=== PATIENT | male | born 1960 | race Caucasian/White ===

== ENCOUNTER 2021-01-02 17:45 | Inpatient (IN) | payer OTHER, SELFPAY ==
[2021-01-02] VITALS (11 sets, daily range): BP systolic 144–195; BP diastolic 67–105; PULSE 70–83; RESP 15–23; TEMP 36.2–37.1; O2SAT 91–98; BMI 36.6; BMI 35.9
[2021-01-02] MEDS: SODIUM CHLORIDE 0.9% 1,000 ML 150 ML IV (18:00)
[2021-01-02 18:30] LABS: Add Manual Diff / Slide Review NO; Basophils Absolute Auto 100 /uL (0-100); Basophils Percent Auto 0.4 % (0-2); Eosinophils Absolute Auto 200 /uL (0-450); Eosinophils Percent Auto 1.6 % (2-4); Hematocrit 41.6 % (41-53); Lymphocytes Absolute Auto 700 /uL (1100-4500); Lymphocytes Percent Auto 5.3 % (25-40); Mean Corpuscular HGB Conc 33.6 % (30-36); Mean Corpuscular Hemoglobin 30.6 PG (26-34); Mean Corpuscular Volume 91.2 fL (80-100); Monocytes Absolute Auto 800 /uL (0-900); Monocytes Percent Auto 5.9 % (3-14); Neutrophils Absolute Auto 11700 /uL (1500-7000); Neutrophils Percent Auto 86.8 % (50-75); Platelet Count 246 X10^3/uL (150-400); Red Blood Cell Count 4.56 X10^6/uL (4.5-5.9); White Blood Cell Count 13.5 X10^3/uL (4.5-11.0)
--- NOTE | 2021-01-02 18:33 | ED_ITS ---
HPI - Abdominal Pain <MANUEL Neal - Last Filed: 01/02/21 20:39> General Chief Complaint: Abdominal Pain Stated Complaint: abdominal pain Time Seen by Provider: 01/02/21 17:50 Source: patient Mode of arrival: Ambulatory Limitations: no limitations History of Present Illness HPI narrative: This is a 60-year-old male, use smokeless tobacco, has past medical history significant for hypertension, depression, anxiety, hyperlipidemia, BPH, inguinal hernia repair presents to ED with chief complain of started with suprapubic pain radiated up to epigastric and to bilateral mid abdomen after eating Chris sandwich at 11:30 a.m.. Patient reports his stomach feels bloated and distended. Patient had normal bowel movements this morning without bloody or tarry stools. Patient denies nausea, vomiting, fever or chills. Denies chest pain, dyspnea, increased back pain from his baseline chronic back pain. Patient denies new urinary symptoms and takes Flomax daily. Patient reports pain increases with movements rates as 5/10 currently upto toe curling. Patient also had colonoscopy about 7 years ago which he was told normal without polyps and denies history of diverticulitis. Patient takes average 5 alcohol drinks per day but does not use illicit drugs. Patient was referred to emergency ED for an evaluation from walk-in clinic. Related Data Home Medications Medication Instructions Recorded Confirmed bupropion HCl [Wellbutrin XL] 150 mg PO QDAY #30 tab 07/21/16 01/02/21 ibuprofen [Advil] 200 mg PO Q4HP PRN #0 tab 07/21/16 01/02/21 lisinopril 40 mg PO QDAY #30 tab 07/21/16 01/02/21 metoprolol tartrate 50 mg PO BID #0 tab 07/21/16 01/02/21 tamsulosin [Flomax] 0.4 mg PO QDAY #0 cap 07/21/16 01/02/21 Allergies Allergy/AdvReac Type Severity Reaction Status Date / Time No Known Drug Allergies Allergy Verified 01/02/21 17:52 Review of Systems <MANUEL Neal - Last Filed: 01/02/21 20:39> Review of Systems Narrative: General: Denies fever, chills, fatigue, malaise, sweats. HEENT: Denies sinus pain, ear pain, sore throat, difficulty swallowing, dizziness. Respiratory: Denies dyspnea, cough, wheezing, hemoptysis, sputum. Cardiovascular: Denies chest pain, palpitations, orthopnea, edema. Gastrointestinal: See HPI : Denies dysuria, frequency, incontinence, hematuria, urinary retention. Musculoskeletal: Denies weakness, joint pain or bony pain. Skin: Denies rash, skin lesions, or other. Neurologic: Denies weakness, headache, numbness, change in speech, confusion, seizures, incoordination. Psychiatric: No concerning psychosocial issues. 12-point review of systems is negative except for those stated above. Patient History <MANUEL Nael - Last Filed: 01/02/21 20:39> Medical History (Updated 01/02/21 @ 20:54 by Nestor Saleem MD) Abdominal pain Arthritis BPH (benign prostatic hyperplasia) Depression Hyperlipidemia Hypertension Influenza immunization not administered due to patient already having been immunized this season Surgical History (Updated 01/02/21 @ 20:40 by Nestor Saleem MD) Hx of umbilical hernia repair Social History (Updated 01/02/21 @ 18:37 by MANUEL Neal) Smoking Status: Current every day smoker Smokeless tobacco user: chewing tobacco alcohol intake: current substance use type: does not use Smoking Status: Current every day smoker alcohol intake frequency: 3 or more drinks per day Substance Use Type: does not use Exam <CARLOS NealP - Last Filed: 01/02/21 20:39> Narrative Exam Narrative: GEN: Alert, oriented x 3, well appearing and nourished, and in no acute distress. Head: Normal cephalic, atraumatic. No scalp or temporal tenderness, palpable mass or rash. EYES: Pupils are equal, round, and reactive to light and accommodation. Extraocular muscles are intact bilaterally. There is no subconjunctival hemorrhage, exudate and sclera non-icteric. ENT: Hearing grossly intact. Nose without bleeding, purulent discharge or dev iation. Mucous membrane moist, no mucosal lesion. Throat without erythema, tonsillar hypertrophy or exudate. Uvula in midline, airway patent. Neck: Trachea in midline. No JVD, non-tender without lymphadenopathy. No masses or thyroid megaly. Supple, non-tender and no meningeal signs. CARDIAC: Normal regular rate and rhythm without murmurs, gallops, or rubs. No chest wall tenderness. No peripheral edema, cyanosis or pallor. Capillary refill is less than 2 seconds. RESPIRATORY: Lungs are clear to auscultate bilaterally. No cough, wheezes, rales, or rhonchi. No stridor, respiratory distress, increase work of breathing, or accessary muscle used. ABD: Abdomen distended, tender to palpate in left mid and low quadrant. No guarding or rebound tenderness to palpate. Bowel sounds are normal in all 4 quadrants. There is no palpable masses or organomegaly. EXT: Full painless ROM of all extremities with no loss of sensation, strength, effusion or edema. SKIN: Warm, dry, normal color for patient. No erythema, lesions or rash over visible areas. BACK: Nontender without deformity or crepitance. No flank tenderness. NEUROLOGICAL: Alert and oriented to place, time and person. Sensation and motor function intact bilaterally. No facial droops, dysphasia. PSYCHIATRIC: Good judgement and reason, without hallucinations, abnormal affect or abnormal behaviors during the examination. Patient is not suicidal. Initial Vital Signs Initial Vital Signs: Vital Signs Temperature 98.8 F 01/02/21 17:49 Pulse Rate 83 01/02/21 17:49 Respiratory Rate 15 01/02/21 17:49 Blood Pressure 195/105 H 01/02/21 17:49 Pulse Oximetry 95 01/02/21 17:49 <Vincent Castillo DO - Last Filed: 01/02/21 20:55> Initial Vital Signs Initial Vital Signs: Vital Signs Temperature 98.8 F 01/02/21 17:49 Pulse Rate 83 01/02/21 17:49 Respiratory Rate 15 01/02/21 17:49 Blood Pressure 195/105 H 01/02/21 17:49 Pulse Oximetry 95 01/02/21 17:49 Scores <MANUEL Neal - Last Filed: 01/02/21 20:39> GCS Wheatcroft coma scale eye opening: Spontaneous Wheat[place] coma scale verbal response: Orientated Wheat[place] coma scale motor response: Obey commands [place] coma scale total score: 15 qSOFA Altered Mental Status (GCS <15): No Respiratory rate greater than/equal to 22: No Systolic blood pressure less than or equal to 100: No qSOFA Total: 0 0-1 Not High Risk 1-3 High risk Course <MANUEL Neal - Last Filed: 01/02/21 20:39> Course Course Narrative: Dr. Saleem consulted over the phone with labs, CT, and physical findings. Dr. Saleem will evaluate the patient at bedside. Decision to Admit Date: 01/02/21 Decision to Admit time: 19:37 Orders Ordered: ED Orders 01/02/21 17:52 EKG-12 Lead Stat 01/02/21 17:55 Complete Blood Count AUTO DIFF Stat Comprehensive Metabolic Panel Stat Lactate (Lactic Acid) Stat Lipase Stat Troponin & CK Cardiac Panel Stat 01/02/21 18:55 CT abdomen pelvis w con Stat Sodium Chloride (Normal Saline 0.9%) 1,000 mls @ 150 mls/hr IV CONT EDGAR Last Admin: 01/02/21 18:00 Dose: 150 mls/hr Documented by: BETHELOTEM Discontinued Medications Lidocaine HCl (Lidocaine 2% (Urojet) 5 Ml Gel) 5 ml TOP NOW ONE Stop: 01/02/21 20:01 Last Admin: 01/02/21 20:38 Dose: 5 ml Documented by: JUAN RAMON Morphine Sulfate (Morphine 4 Mg/Ml Inj) 4 mg IV NOW ONE Stop: 01/02/21 18:33 Last Admin: 01/02/21 18:40 Dose: 4 mg Documented by: JUAN RAMON Reevaluation(s) Reevaluation #1: Patient reports pain improved to 3/10 at this time after 4 mg of IV morphine. Labs and CT results shared with patient and . Paging Dr. Saleem to consult. Time: 19:32 Consultations Consultation #1: Dr. Saleem recommended for NGT to in compress stomach. Time: 18:43 Consultation #2: Dr. Saleem in ED to evaluate patient at bedside. Time: 19:48 Vital Signs Vital signs: Vital Signs - 8 hr 01/02/21 17:49 01/02/21 18:34 01/02/21 19:00 Temperature 98.8 F Pulse Rate 83 72 71 Respiratory Rate 15 21 21 Blood Pressure 195/105 H 165/82 H Pulse Oximetry 95 95 91 01/02/21 19:14 01/02/21 19:30 Temperature Pulse Rate 78 73 Respiratory Rate 23 20 Blood Pressure 166/80 H 162/83 H Pulse Oximetry 94 94 <Vincent Castillo DO - Last Filed: 01/02/21 20:55> Orders Ordered: ED Orders 01/02/21 17:52 EKG-12 Lead Stat 01/02/21 17:55 Complete Blood Count AUTO DIFF Stat Comprehensive Metabolic Panel Stat Lactate (Lactic Acid) Stat Lipase Stat Troponin & CK Cardiac Panel Stat 01/02/21 18:55 CT abdomen pelvis w con Stat Sodium Chloride (Normal Saline 0.9%) 1,000 mls @ 150 mls/hr IV CONT EDGAR Last Admin: 01/02/21 18:00 Dose: 150 mls/hr Documented by: JABARI Discontinued Medications Lidocaine HCl (Lidocaine 2% (Urojet) 5 Ml Gel) 5 ml TOP NOW ONE Stop: 01/02/21 20:01 Last Admin: 01/02/21 20:38 Dose: 5 ml Documented by: JUAN RAMON Morphine Sulfate (Morphine 4 Mg/Ml Inj) 4 mg IV NOW ONE Stop: 01/02/21 18:33 Last Admin: 01/02/21 18:40 Dose: 4 mg Documented by: JUAN RAMON Vital Signs Vital signs: Vital Signs - 8 hr 01/02/21 17:49 01/02/21 18:34 01/02/21 19:00 Temperature 98.8 F Pulse Rate 83 72 71 Respiratory Rate 15 21 21 Blood Pressure 195/105 H 165/82 H Pulse Oximetry 95 95 91 01/02/21 19:14 01/02/21 19:30 Temperature Pulse Rate 78 73 Respiratory Rate 23 20 Blood Pressure 166/80 H 162/83 H Pulse Oximetry 94 94 MDM - Abdominal Pain <MANUEL Neal - Last Filed: 01/02/21 20:39> Differential Diagnosis Differential diagnosis: Likely abdominal pain, acute appendicitis, calculus of kidney, diverticulitis, small bowel obstruction and other (Cholecystitis) Medical Records Attestation: I reviewed the patient's medical records. Lab Data Attestation: I reviewed the patient's lab results. Result diagrams: 01/02/21 17:55 01/02/21 17:55 Labs: Lab Results 01/02/21 01/02/21 01/02/21 Range/Units 17:55 17:55 17:55 WBC 13.5 H (4.5-11.0) X10^3/uL RBC 4.56 (4.5-5.9) X10^6/uL Hgb 14.0 (13.5-17.5) g/dL Hct 41.6 (41-53) % MCV 91.2 (80-100) fL MCH 30.6 (26-34) PG MCHC 33.6 (30-36) % RDW 14.0 (11.6-14.8) % Plt Count 246 (150-400) X10^3/uL Neut % (Auto) 86.8 H (50-75) % Lymph % (Auto) 5.3 L (25-40) % [place] % (Auto) 5.9 (3-14) % Eos % (Auto) 1.6 L (2-4) % Baso % (Auto) 0.4 (0-2) % Neut # (Auto) 54331 H (4080-8989) /uL Lymph # (Auto) 700 L (7142-2232) /uL [place] # (Auto) 800 (0-900) /uL Eos # (Auto) 200 (0-450) /uL Baso # (Auto) 100 (0-100) /uL Sodium 137 (137-145) mmol/L Potassium 3.8 (3.4-5.1) mmol/L Chloride 101 (98-107) mmol/L Carbon Dioxide 30 (22-32) mmol/L BUN 26 H (9-20) mg/dL Creatinine 0.72 (0.66-1.25) mg/dL Estimated GFR > 60.0 (>60) mL/min BUN/Creatinine Ratio 36.1 H (6-22) Glucose 118 H (70-100) mg/dL Lactate 1.3 (0.7-2.1) mmol/L Calcium 9.7 (8.4-10.2) mg/dL Total Bilirubin 0.6 (0.2-1.3) mg/dL AST 27 (17-59) IU/L ALT 27 (<50) IU/L Alkaline Phosphatase 109 (38-126) U/L Total Creatine Kinase 84 (55-170) U/L CK-MB (CK-2) TNP CK-MB (CK-2) Rel Index TNP Troponin I < 0.012 (0.01-0.034) ng/mL Total Protein 7.7 (6.3-8.2) g/dL Albumin 4.5 (3.5-5.0) g/dL Globulin 3.2 (1.7-4.1) g/dL Albumin/Globulin Ratio 1.4 (1.0-2.8) Lipase 76 (23-300) U/L Imaging Data CT scan - abdomen/pelvis: Radiologist's Impression: [address] [id number] Scan ReportSigned Patient: Bernabe Siddiqi JMR#: [id number]: 1Acct:[id number]/Sex: 60 / MDate of Service: 01/02/21Loc: EDAccession Number: [id number] Procedure: CT abdomen pelvis w con Ordering Provider: Leo Montesinos PROCEDURE: CT ABDOMEN PELVIS W CON INDICATIONS: low to mid abd pain, SOB/cholecystitis/diverticulitis TECHNIQUE: After the administration of intravenous contrast, 5 mm thick sections acquired from the diaphragm to the symphysis. 5 mm coronal and sagittal reformats were acquired. For radiation dose reduction, the following was used: automated exposure control, adjustment of mA and/or kV according to patient size. COMPARISON: None. FINDINGS: Image quality: Excellent. ABDOMEN: Lung bases: Lung bases are clear. Heart size is normal. Solid organs: Liver is normal in size and enhancement. Gallbladder is within normal limits. Biliary system is non dilated. Pancreas enhances normally. Spleen is normal in size and enhancement. No adrenal nodules. Kidneys demonstrate normal size and enhancement, without hydronephrosis. 2 mm nonobstructing calculus in the superior pole right kidney. 3 mm nonobstructing calculus in the inferior pole right kidney. Peritoneum and bowel: Moderate gastric distention is present. Duodenum is normal in caliber. There is moderate distension of multiple proximal jejunal loops, which are mildly thickened. There is a transition point between dilated and nondilated small bowel within the low anterior pelvis. Distal small bowel is decompressed. Colon is decompressed. Appendix is normal. There is mild mesenteric edema adjacent to the dilated small bowel loops, as well as a small amount of interloop fluid. No free fluid or air. Nodes and vessels: No retroperitoneal or mesenteric adenopathy by size criteria. Aorta and inferior vena cava are normal in size. Miscellaneous: No ventral hernias. PELVIS: Genitourinary: Bladder wall thickness is normal. Miscellaneous: No inguinal hernias or adenopathy. Bones: No suspicious bony lesions. No vertebral body compression fractures. IMPRESSION: 1. Small-bowel obstruction, with transition zone in the anterior pelvis. 2. Thickened small bowel loops, consistent with infection, inflammation, or ischemia. 3. Normal appendix. 4. Small nonobstructing right renal calculi. Dictated by: Saw Schmidt M.D. on 01/02/2021 at 19:19 Approved by: Saw Schmidt M.D. on 01/02/2021 at 19:21 Chest x-ray: Radiologist's Impression: [address] [id number] ReportSigned Patient: Bernabe Siddiqi JMR#: [id number]: 1Acct:[id number]/Sex: 60 / MDate of Service: 01/02/21Loc: [id number] Number: [id number] Procedure: XR chest 1V Ordering Provider: Leo Montesinos PROCEDURE: XR CHEST 1V INDICATIONS: s/p NGT insertion placement TECHNIQUE: One view of the chest was acquired. COMPARISON: None. FINDINGS: Surgical changes and devices: NGT is present, tip of which is in the gastric lumen. Lungs and pleura: Lungs are clear. No pleural effusions or pneumothorax. Mediastinum: Mediastinal contours appear normal. Heart size is normal. Bones and chest wall: No suspicious bony lesions. Overlying soft tissues appear unremarkable. IMPRESSION: No acute process. Dictated by: Saw Schmidt M.D. on 01/02/2021 at 20:26 Approved by: Saw Schmidt M.D. on 01/02/2021 at 20:27 ECG Data Attestation: I personally reviewed and interpreted this ECG as follows: Prior ECG tracings: not available for review Interpretation: Normal sinus rhythm rate at 70. Normal [place]. OK interval 162, QRS duration 90, QT/QTC 400/[address] changes MDM Narrative Medical decision making narrative: This is a 60-year-old male who presents to ED with chief complain of abdominal pain started on suprapubic region but now radiates to epigastric and bilateral mid abdomen without nausea, vomiting, fever or chills since 11:30 this morning when he had lunch. Patient reports last bowel movement this morning which was normal for him. Patient has history of umbilical hernia repair about 8 years ago. Physical exam appreciated distended abdomen which is tender to palpate in left mid to low abdomen. Slightly elevated white count of 11.3 and neutrophil of 86.8%. Lactate within normal of 1.3. Patient is mildly dehydrated with elevated BUN of 26 and BUN/creatinine ratio of 36.1 otherwise normal lipase, kidney function test, liver function test. Lactate is 1.3 and patient is afebrile. EKG was normal sinus rhythm without acute ST changes and cardiac enzymes were negative. Abdomen CT shows small-bowel obstruction with transition zone in the anterior pelvis with thickened small bowel loops concerns for infection/inflammation or ischemia. No indications for appendicitis and incidental finding of small nonobstructing right renal calculi. Patient was medicated with morphine 4 mg IV which improved discomfort. Patient was hydrated with gentle controlled IV fluid of normal saline. Dr. Saleem consulted and he kindly accepted patient's care and evaluated patient at bedside. He in placed an 18 Indian NG to and obtain about 500 mL of brown color food particles. <Vincent Castillo, DO - Last Filed: 01/02/21 20:55> Lab Data Labs: Lab Results 01/02/21 01/02/21 01/02/21 Range/Units 17:55 17:55 17:55 WBC 13.5 H (4.5-11.0) X10^3/uL RBC 4.56 (4.5-5.9) X10^6/uL Hgb 14.0 (13.5-17.5) g/dL Hct 41.6 (41-53) % MCV 91.2 (80-100) fL MCH 30.6 (26-34) PG MCHC 33.6 (30-36) % RDW 14.0 (11.6-14.8) % Plt Count 246 (150-400) X10^3/uL Neut % (Auto) 86.8 H (50-75) % Lymph % (Auto) 5.3 L (25-40) % [place] % (Auto) 5.9 (3-14) % Eos % (Auto) 1.6 L (2-4) % Baso % (Auto) 0.4 (0-2) % Neut # (Auto) 00709 H (8676-2282) /uL Lymph # (Auto) 700 L (1828-5528) /uL [place] # (Auto) 800 (0-900) /uL Eos # (Auto) 200 (0-450) /uL Baso # (Auto) 100 (0-100) /uL Sodium 137 (137-145) mmol/L Potassium 3.8 (3.4-5.1) mmol/L Chloride 101 (98-107) mmol/L Carbon Dioxide 30 (22-32) mmol/L BUN 26 H (9-20) mg/dL Creatinine 0.72 (0.66-1.25) mg/dL Estimated GFR > 60.0 (>60) mL/min BUN/Creatinine Ratio 36.1 H (6-22) Glucose 118 H (70-100) mg/dL Lactate 1.3 (0.7-2.1) mmol/L Calcium 9.7 (8.4-10.2) mg/dL Total Bilirubin 0.6 (0.2-1.3) mg/dL AST 27 (17-59) IU/L ALT 27 (<50) IU/L Alkaline Phosphatase 109 (38-126) U/L Total Creatine Kinase 84 (55-170) U/L CK-MB (CK-2) TNP CK-MB (CK-2) Rel Index TNP Troponin I < 0.012 (0.01-0.034) ng/mL Total Protein 7.7 (6.3-8.2) g/dL Albumin 4.5 (3.5-5.0) g/dL Globulin 3.2 (1.7-4.1) g/dL Albumin/Globulin Ratio 1.4 (1.0-2.8) Lipase 76 (23-300) U/L Discharge Plan Departure Patient Disposition: Admitted As Inpatient Clinical Impression: SBO (small bowel obstruction) Admit Date/Time: 01/02/21 19:59 Admit Provider: Nestor Saleem <Vincent Castillo DO - Last Filed: 01/02/21 20:55> Cosign ED Attending Cosignature Attestation: Dr Castillo Co-Sign Statement: I was available for consultation during this patient's emergency department visit. This chart is signed by myself for administrative purposes only. I did not have direct contact with this patient during this visit. They were seen independently by the APC.
[2021-01-02] MEDS: MORPHINE 4 MG/ML INJ IV (18:40)
[2021-01-02 18:42] LABS: Alanine Aminotransferase 27 IU/L (<50); Albumin 4.5 g/dL (3.5-5.0); Albumin Globulin Ratio 1.4 (1.0-2.8); Alkaline Phosphatase 109 U/L (38-126); Aspartate Aminotransferase 27 IU/L (17-59); BUN Creatinine Ratio 36.1 (6-22); Bilirubin Total 0.6 mg/dL (0.2-1.3); Blood Urea Nitrogen 26 mg/dL (9-20); Calcium 9.7 mg/dL (8.4-10.2); Carbon Dioxide 30 mmol/L (22-32); Chloride 101 mmol/L (98-107); Creatine Kinase 84 U/L (55-170); Estimated Glomerular Filt Rate > 60.0 mL/min (>60); Globulin 3.2 g/dL (1.7-4.1); Glucose 118 mg/dL (70-100); HEMOLYSIS < 15 (0-50); Lipase 76 U/L (23-300); Potassium 3.8 mmol/L (3.4-5.1); Sodium 137 mmol/L (137-145); Total Protein 7.7 g/dL (6.3-8.2)
[2021-01-02 18:53] LABS: Troponin I < 0.012 ng/mL (0.01-0.034)
--- NOTE | 2021-01-02 18:55 | DI.CT.S_ITS ---
PROCEDURE: CT ABDOMEN PELVIS W CON INDICATIONS: low to mid abd pain, SOB/cholecystitis/diverticulitis TECHNIQUE: After the administration of intravenous contrast, 5 mm thick sections acquired from the diaphragm to the symphysis. 5 mm coronal and sagittal reformats were acquired. For radiation dose reduction, the following was used: automated exposure control, adjustment of mA and/or kV according to patient size. COMPARISON: None. FINDINGS: Image quality: Excellent. ABDOMEN: Lung bases: Lung bases are clear. Heart size is normal. Solid organs: Liver is normal in size and enhancement. Gallbladder is within normal limits. Biliary system is non dilated. Pancreas enhances normally. Spleen is normal in size and enhancement. No adrenal nodules. Kidneys demonstrate normal size and enhancement, without hydronephrosis. 2 mm nonobstructing calculus in the superior pole right kidney. 3 mm nonobstructing calculus in the inferior pole right kidney. Peritoneum and bowel: Moderate gastric distention is present. Duodenum is normal in caliber. There is moderate distension of multiple proximal jejunal loops, which are mildly thickened. There is a transition point between dilated and nondilated small bowel within the low anterior pelvis. Distal small bowel is decompressed. Colon is decompressed. Appendix is normal. There is mild mesenteric edema adjacent to the dilated small bowel loops, as well as a small amount of interloop fluid. No free fluid or air. Nodes and vessels: No retroperitoneal or mesenteric adenopathy by size criteria. Aorta and inferior vena cava are normal in size. Miscellaneous: No ventral hernias. PELVIS: Genitourinary: Bladder wall thickness is normal. Miscellaneous: No inguinal hernias or adenopathy. Bones: No suspicious bony lesions. No vertebral body compression fractures. IMPRESSION: 1. Small-bowel obstruction, with transition zone in the anterior pelvis. 2. Thickened small bowel loops, consistent with infection, inflammation, or ischemia. 3. Normal appendix. 4. Small nonobstructing right renal calculi. Dictated by: Saw Schmidt M.D. on 01/02/2021 at 19:19 Approved by: Saw Schmidt M.D. on 01/02/2021 at 19:21
[2021-01-02 19:37] LABS: Lactate (Lactic Acid) 1.3 mmol/L (0.7-2.1)
--- NOTE | 2021-01-02 20:13 | DI.RAD.S_ITS ---
PROCEDURE: XR CHEST 1V INDICATIONS: s/p NGT insertion placement TECHNIQUE: One view of the chest was acquired. COMPARISON: None. FINDINGS: Surgical changes and devices: NGT is present, tip of which is in the gastric lumen. Lungs and pleura: Lungs are clear. No pleural effusions or pneumothorax. Mediastinum: Mediastinal contours appear normal. Heart size is normal. Bones and chest wall: No suspicious bony lesions. Overlying soft tissues appear unremarkable. IMPRESSION: No acute process. Dictated by: Saw Schmidt M.D. on 01/02/2021 at 20:26 Approved by: Saw Schmidt M.D. on 01/02/2021 at 20:27
--- NOTE | 2021-01-02 20:34 | P.HP_ITS ---
History of Present Illness History of Present Illness Date Patient Seen: 01/02/21 Time Patient Seen: 20:20 Chief complaint: abdominal pain Narrative: The patient is a gentleman who developed abdominal pain earlier today. He had a normal bowel movement this morning. Has had no nausea or vomiting. He feels that his abdomen is bloated. He has had some minor abdom inal discomfort over the years but nothing like this. He had a colonoscopy 8 or 9 years ago about the age of 51. No in his family of any has any intestinal cancer. The patient does note occasionally he hears sloshing in his abdomen. It sounds like fluid going back and forth. This is been going on for several years. His only prior abdominal operation was a laparoscopic repair of an umbilical hernia and perhaps 1 below it with mesh. Patient History Medical History (Updated 01/02/21 @ 20:54 by Nestor Saleem MD) Abdominal pain Arthritis BPH (benign prostatic hyperplasia) Depression Hyperlipidemia Hypertension Influenza immunization not administered due to patient already having been immunized this season Surgical History (Updated 01/02/21 @ 20:40 by Nestor Saleem MD) Hx of umbilical hernia repair Family & Social History Safety & Behavioral: Feels Safe in Current Yes Environment Been Physically Hurt or No Threatened By a Person Tobacco & Substance use: Smoking Status prior smoker. Twenty years ago alcohol intake current alcohol intake frequency 3 or more drinks per day Substance Use Type does not use Meds Home Medications and Allergies Home Medications Medication Instructions Recorded Confirmed Type bupropion HCl [Wellbutrin XL] 150 mg PO QDAY #30 tab 07/21/16 01/02/21 History ibuprofen [Advil] 200 mg PO Q4HP PRN #0 tab 07/21/16 01/02/21 History lisinopril 40 mg PO QDAY #30 tab 07/21/16 01/02/21 History metoprolol tartrate 50 mg PO BID #0 tab 07/21/16 01/02/21 History tamsulosin [Flomax] 0.4 mg PO QDAY #0 cap 07/21/16 01/02/21 History Allergies Allergy/AdvReac Type Severity Reaction Status Date / Time No Known Drug Allergies Allergy Verified 01/02/21 17:52 Review of Systems Review of Systems Narrative: Patient wears glasses. Denies double vision or pain is eyes. No earaches or sore throats. No tooth aches. No trouble swallowing. No cough cold at this time. History of asthma but no longer uses medication for it. No heart problems or chest pain that he is aware of. No black or bloody bowel movements. Appetite up until today is been good. He does have trouble with frequency and urgency. No blood in his urine and no history kidney stones. No seizures or blackouts. He suffers from anxiety and depression and takes medication for it. No problems with unusual bruising or bleeding. Exam Vital Signs (past 8 hours): - 01/02/21 17:49 Temperature 98.8 F Pulse Rate 83 Respiratory Rate 15 Blood Pressure 195/105 H Pulse Oximetry 95 Oxygen Delivery Method Room Air Narrative Exam Narrative: Cooperative gentleman in no apparent distress. Pain much improved after morphine was given. Eyes are nonicteric. Conjunctivae a little pale. Pupils equal round small reactive to light. Ears without lesion. Oral mucosa is dry and no open lesions. Nasal septum is midline. No polyps seen. Patient has no palpable nodes in his neck or supraclavicular areas. Trachea is midline mobile. No obvious masses in the neck or thyroid lungs are clear to auscultation without rales or rhonchi. Good respiratory effort. Heart regular rate and rhythm without murmur gallop. No heave lift or thrill. Abdomen is m arkedly distended and soft. No hernias appreciated. Liver and spleen are not obviously enlarged. His size however would preclude finding a mass or hernia unless or significant in size. Extremities without cyanosis clubbing or edema. No bony deformities of the hands. Absent dorsalis pedis pulses bilaterally. 2+ tibialis posterior pulses. Patient is alert and oriented. Speech rate and content are appropriate. Affect is appropriate. Extraocular movements are intact tongue is midline face is symmetric. Objective Imaging CT scan - abdomen: My impression: Patient has evidence of a bowel obstruction which is probably related to the mesh repairs of aim of his umbilical hernia. I can see the metallic clips that were the anchors to hold the mesh in place. There is some edema in the area. There is some fecalization of small bowel in the region. The stomach is markedly distended with fluid. Labs Result Diagrams: 01/02/21 17:55 01/02/21 17:55 Labs: Laboratory Results - last 24 hr 03/10/21 03/10/21 03/10/21 17:55 17:55 17:55 WBC 13.5 H RBC 4.56 Hgb 14.0 Hct 41.6 MCV 91.2 MCH 30.6 MCHC 33.6 RDW 14.0 Plt Count 246 Neut % (Auto) 86.8 H Lymph % (Auto) 5.3 L [place] % (Auto) 5.9 Eos % (Auto) 1.6 L Baso % (Auto) 0.4 Neut # (Auto) 73650 H Lymph # (Auto) 700 L [place] # (Auto) 800 Eos # (Auto) 200 Baso # (Auto) 100 Sodium 137 Potassium 3.8 Chloride 101 Carbon Dioxide 30 BUN 26 H Creatinine 0.72 Estimated GFR > 60.0 BUN/Creatinine Ratio 36.1 H Glucose 118 H Lactate 1.3 Calcium 9.7 Total Bilirubin 0.6 AST 27 ALT 27 Alkaline Phosphatase 109 Total Creatine Kinase 84 CK-MB (CK-2) TNP CK-MB (CK-2) Rel Index TNP Troponin I < 0.012 Total Protein 7.7 Albumin 4.5 Globulin 3.2 Albumin/Globulin Ratio 1.4 Lipase 76 Assessment & Plan Assessment and plan (1) Depression: Problem details: Will hold Wellbutrin for now. Restart when patient able to take p.o.. Ativan for anxiety. Status: Acute (2) BPH (benign prostatic hyperplasia): Problem details: Will hold the Flomax for now. Resume when p.o. resumes. May require a Romano but for now will try to manage without it. Status: Acute (3) Hyperlipidemia: Problem details: Hold medication for now. Status: Acute (4) Hypertension: Problem details: Patient normally on lisinopril and metoprolol for his blood pressure. Will continue IV metoprolol for now. Status: Acute (5) Influenza immunization not administered due to patient already having been immunized this season: Status: Acute (6) SBO (small bowel obstruction): Problem details: NG tube was placed by me. Immediately obtain 500 cc material in 250 shortly after. Start tube is still draining. X-ray reveals a tube in good position in the stomach. I advanced it slightly in order to push it further into the stomach. Will continue intermittent suction. Planned small-bowel follow- through with [facility] or similar starting tomorrow morning. Fluid resuscitation through the night. Right now patient has a mild elevation of his white blood cell count he is not tender and therefore I do not think I need to perkins him to the operating room. I am pretty sure based on the CT scan that this is an obstruction related to his mesh implantation at the time of hernia repair in the early . Status: Acute (7) Alcohol abuse: Problem details: Patient drinks on average 5 mixed drinks a day. Sometimes less sometimes more. He has done this for some time. There is nothing on the CT scan to suggest hepatitis but I am concerned that he could go into withdrawal therefore will start a CIWA protocol Status: Acute
[2021-01-02] MEDS: LIDOCAINE 2% (UROJET) 5 ML GEL TOP (20:38)
[2021-01-02 21:54] LABS: COVID19 - ADMIT (NP swab/PCR) Negative (Negative)
[2021-01-02] MEDS: METOPROLOL TARTRATE 5 MG/5 ML INJ IV (22:01)
[2021-01-02] MEDS: ENOXAPARIN 40 MG/0.4 ML SYRINGE SUBCUT (22:01)
[2021-01-02] MEDS: LACTATED RINGERS 1,000 ML 150 ML IV (22:02)
--- NOTE | 2021-01-02 23:10 | PC.NURSE ---
Admit/Evening Shift Note- Patient [id number] to room via stretcher from ER at 2110. Patient able to walk on his own with steady from stretcher to bed. Admit questions done, physical assessment done, and skin check completed. NG set tto 110mmHg intermittant suction as ordered. Tubing clogged and blocking drainage. Flushed line. Positive results. CIWA started and seizure pads placed on bed rails. CIWA on arrival= 0. Patient oriented to bed and bed controls, room, lights, phone, bathroom, and call olea/tv remote. Safety measures in place. bed alarm activated. Patient agrees to call for assistance. Call olea and phone within reach. Will continue to [facility].
[2021-01-03] VITALS (7 sets, daily range): BP systolic 139–155; BP diastolic 77–95; PULSE 69–86; RESP 18; TEMP 36.1–36.7; O2SAT 94–97
[2021-01-03] MEDS: METOPROLOL TARTRATE 5 MG/5 ML INJ IV ×4 (03:49→22:02)
[2021-01-03] MEDS: LACTATED RINGERS 1,000 ML 150 ML IV ×3 (05:12→19:55)
[2021-01-03 06:27] LABS: Add Manual Diff / Slide Review NO; Basophils Absolute Auto 0 /uL (0-100); Basophils Percent Auto 0.2 % (0-2); Eosinophils Absolute Auto 100 /uL (0-450); Eosinophils Percent Auto 1.3 % (2-4); Hemoglobin 13.8 g/dL (13.5-17.5); Lymphocytes Absolute Auto 700 /uL (1100-4500); Lymphocytes Percent Auto 6.2 % (25-40); Mean Corpuscular HGB Conc 32.8 % (30-36); Mean Corpuscular Hemoglobin 30.5 PG (26-34); Mean Corpuscular Volume 93.1 fL (80-100); Monocytes Absolute Auto 900 /uL (0-900); Monocytes Percent Auto 7.7 % (3-14); Neutrophils Absolute Auto 10000 /uL (1500-7000); Neutrophils Percent Auto 84.6 % (50-75); Platelet Count 213 X10^3/uL (150-400); Red Blood Cell Count 4.51 X10^6/uL (4.5-5.9); White Blood Cell Count 11.8 X10^3/uL (4.5-11.0)
[2021-01-03 06:37] LABS: Alanine Aminotransferase 24 IU/L (<50); Albumin 4.2 g/dL (3.5-5.0); Albumin Globulin Ratio 1.4 (1.0-2.8); Alkaline Phosphatase 98 U/L (38-126); Aspartate Aminotransferase 28 IU/L (17-59); BUN Creatinine Ratio 32.8 (6-22); Bilirubin Total 0.7 mg/dL (0.2-1.3); Blood Urea Nitrogen 21 mg/dL (9-20); Calcium 9.3 mg/dL (8.4-10.2); Carbon Dioxide 29 mmol/L (22-32); Chloride 101 mmol/L (98-107); Estimated Glomerular Filt Rate > 60.0 mL/min (>60); Globulin 2.9 g/dL (1.7-4.1); Glucose 110 mg/dL (70-100); HEMOLYSIS < 15 (0-50); Potassium 3.9 mmol/L (3.4-5.1); Sodium 136 mmol/L (137-145); Total Protein 7.1 g/dL (6.3-8.2)
--- NOTE | 2021-01-03 08:00 | DI.RAD.S_ITS ---
PROCEDURE: [place] SMALL BOWEL FOLLOW THROUGH INDICATIONS: sbo COMPARISON: [facility], CT, CT ABDOMEN PELVIS W CON, 01/02/2021, 19:02. [facility], CR, XR CHEST 1V, 01/02/2021, 20:16. FINDINGS: KUB: Preprocedural dispute coordinator film demonstrates multiple persistent distended loops of small bowel predominantly in the left mid and lower abdomen. Multiple mesh surgical coils are noted in the abdomen.. No suspicious abdominal calcifications. Visualized solid organ contours appear normal. No suspicious bony abnormalities. Small bowel: There is transit of ingested oral barium through the small bowel. Persistent air distended loops of small bowel in the left mid and lower abdomen. Mucosal folds are smooth and of normal thickness. No strictures, intraluminal masses, or extrinsic mass effects are noted. Oral contrast is noted to the level of the rectum. IMPRESSION: Visualized transit of oral contrast from the stomach to the level of the rectum within 8 hours of initiating examination. Several loops of distended small bowel in the left mid and lower abdomen persists. Dictated by: Vic Potter M.D. on 01/03/2021 at 16:53 Approved by: Vic Potter M.D. on 01/03/2021 at 16:55
[2021-01-03] MEDS: KETOROLAC 30 MG/ML VIAL IV ×2 (09:24→16:08)
[2021-01-03] MEDS: ENOXAPARIN 40 MG/0.4 ML SYRINGE SUBCUT (09:24)
--- NOTE | 2021-01-03 15:09 | CM.IDA ---
Initial DCP Assessment Note Pt is a 60 yo female, resident of [place], presents w/ SBO, NG tube placed by Dr Saleem. PCP: Not Listed Payer: Dl Reviewed chart, met w/ patient and his spouse Yadira, introduced role. 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 Patient reports at least 5 mixed, hard alcohol drinks per day, placed on CIWA protocal. Will follow closely. No needs expected from DC planning team today, will follow closely for any DC needs or concerns that arise. NANCY Turcios
--- NOTE | 2021-01-03 19:52 | PM.PN.1 ---
Subjective Subjective Date Patient Seen: 01/03/21 Time Patient Seen: 19:53 Interval history: Patient was seen earlier today briefly again this evening. He had a small-bowel follow-through today. He has had 2 bowel movements 1 of which was very large. His abdominal pain has essentially resolved. Exam Vital Signs (past 8 hours): - 01/03/21 15:35 Temperature 98.1 F Pulse Rate 86 Respiratory Rate 18 Blood Pressure 139/95 H Pulse Oximetry 95 Oxygen Delivery Method Room Air Oxygen Flow Rate 0 Narrative Exam Narrative: Lungs are clear. Abdomen remains distended but soft. No tenderness. Objective Imaging Abdominal x-ray: My impression: Patient had order soluble contrast placed is NG tube in it 8 hour film he had contrast in the rectum. He did have some dilated small bowel loops remaining in left mid abdomen. The remainder are normal. Stomach was no longer distended. Labs Result Diagrams: 01/03/21 06:00 01/03/21 06:00 Labs: Laboratory Results - last 24 hr 01/02/21 01/03/21 01/03/21 20:53 06:00 06:00 WBC 11.8 H RBC 4.51 Hgb 13.8 Hct 42.0 MCV 93.1 MCH 30.5 MCHC 32.8 RDW 14.0 Plt Count 213 Neut % (Auto) 84.6 H Lymph % (Auto) 6.2 L [place] % (Auto) 7.7 Eos % (Auto) 1.3 L Baso % (Auto) 0.2 Neut # (Auto) 90057 H Lymph # (Auto) 700 L [place] # (Auto) 900 Eos # (Auto) 100 Baso # (Auto) 0 Sodium 136 L Potassium 3.9 Chloride 101 Carbon Dioxide 29 BUN 21 H Creatinine 0.64 L Estimated GFR > 60.0 BUN/Creatinine Ratio 32.8 H Glucose 110 H Calcium 9.3 Total Bilirubin 0.7 AST 28 ALT 24 Alkaline Phosphatase 98 Total Protein 7.1 Albumin 4.2 Globulin 2.9 Albumin/Globulin Ratio 1.4 SARS-CoV-2 (PCR) Negative [facility] Medical History (Updated 01/03/21 @ 19:58 by Nestor Saleem MD) Abdominal pain Arthritis BPH (benign prostatic hyperplasia) Depression Hyperlipidemia Hypertension Influenza immunization not administered due to patient already having been immunized this season Surgical History (Updated 01/02/21 @ 20:40 by Nestor Saleem MD) Hx of umbilical hernia repair Social History (Updated 01/02/21 @ 18:37 by MANUEL Neal) household members: spouse Smoking Status: Current every day smoker Smokeless tobacco user: chewing tobacco alcohol intake: current substance use type: does not use Assessment & Plan Assessment and plan (1) Hypertension: Problem details: Will continue IV metoprolol but start on p.o. lisinopril. Qualifiers: Hypertension type: essential hypertension Qualified Code(s): I10 - Essential (primary) hypertension Status: Acute (2) Hyperlipidemia: Problem details: Resume atorvastatin Qualifiers: Hyperlipidemia type: unspecified Qualified Code(s): E78.5 - Hyperlipidemia, unspecified Status: Acute (3) BPH (benign prostatic hyperplasia): Problem details: Resume Flomax Qualifiers: Lower urinary tract symptom presence: symptoms present Lower urinary tract symptom detail: urinary frequency Qualified Code(s): N40.1 - Benign prostatic hyperplasia with lower urinary tract symptoms; R35.0 - Frequency of micturition Status: Acute (4) Depression: Problem details: Resume Wellbutrin. Continue Ativan. Qualifiers: Depression Type: unspecified Qualified Code(s): F32.9 - Major depressive disorder, single episode, unspecified Status: Acute (5) Arthritis: Problem details: Will continue his present nonsteroidals Status: Acute (6) SBO (small bowel obstruction): Problem details: Seems to be resolving. Will remove NG tube Status: Acute (7) Abdominal pain: Qualifiers: Abdominal location: lower abdomen, unspecified Qualified Code(s): R10.30 - Lower abdominal pain, unspecified Status: Acute (8) Alcohol abuse: Problem details: Continue CIWA protocol. Ativan as needed. Continue IV per metoprolol for now. Status: Acute Assessment & Plan narrative: Resolved. Start diet in a.m. after x-rays performed.
[2021-01-03] MEDS: TAMSULOSIN 0.4 MG CAPSULE PO (20:53)
[2021-01-03] MEDS: lisinopriL 20 MG TABLET 40 MG PO (20:54)
[2021-01-03] MEDS: SERTRALINE 50 MG TABLET 25 MG PO (20:55)
[2021-01-03] MEDS: ATORVASTATIN 20 MG TABLET 80 MG PO (20:56)
[2021-01-03] MEDS: buPROPion 75 MG TABLET PO (20:56)
[2021-01-04] VITALS (7 sets, daily range): BP systolic 135–158; BP diastolic 75–92; PULSE 69–83; RESP 14–22; TEMP 36–36.7; O2SAT 92–96
[2021-01-04] MEDS: LACTATED RINGERS 1,000 ML 150 ML IV ×2 (02:36→10:00)
[2021-01-04] MEDS: METOPROLOL TARTRATE 5 MG/5 ML INJ IV ×2 (04:21→09:26)
[2021-01-04 05:33] LABS: Add Manual Diff / Slide Review NO; Basophils Absolute Auto 0 /uL (0-100); Basophils Percent Auto 0.4 % (0-2); Eosinophils Absolute Auto 200 /uL (0-450); Eosinophils Percent Auto 2.1 % (2-4); Hematocrit 38.5 % (41-53); Hemoglobin 12.7 g/dL (13.5-17.5); Lymphocytes Absolute Auto 700 /uL (1100-4500); Lymphocytes Percent Auto 7.9 % (25-40); Mean Corpuscular HGB Conc 32.9 % (30-36); Mean Corpuscular Hemoglobin 30.4 PG (26-34); Mean Corpuscular Volume 92.5 fL (80-100); Monocytes Absolute Auto 800 /uL (0-900); Monocytes Percent Auto 8.7 % (3-14); Neutrophils Absolute Auto 7300 /uL (1500-7000); Neutrophils Percent Auto 80.9 % (50-75); Platelet Count 195 X10^3/uL (150-400); Red Blood Cell Count 4.17 X10^6/uL (4.5-5.9)
[2021-01-04 05:40] LABS: BUN Creatinine Ratio 31.3 (6-22); Blood Urea Nitrogen 21 mg/dL (9-20); Calcium 8.9 mg/dL (8.4-10.2); Carbon Dioxide 34 mmol/L (22-32); Chloride 103 mmol/L (98-107); Estimated Glomerular Filt Rate > 60.0 mL/min (>60); Glucose 106 mg/dL (70-100); HEMOLYSIS < 15 (0-50); Potassium 4.1 mmol/L (3.4-5.1); Sodium 137 mmol/L (137-145)
--- NOTE | 2021-01-04 07:00 | DI.RAD.S_ITS ---
PROCEDURE: XR ACUTE ABDOMEN SERIES INDICATIONS: f/u sbo TECHNIQUE: One view chest and two views of the abdomen were acquired. , and in [facility], , [place] SMALL BOWEL FOLLOW THROUGH, 01/03/2021, 7:56. he rectal vault.COMPARISON: FINDINGS: Surgical changes and devices: None. Chest: Lungs are clear. Heart size is normal. No pleural effusions. No pneumoperitoneum. Abdomen: Residual oral contrast material seen throughout the colon and the rectal vault. No transition point seen. Bones: Spondylosis and bilateral hip joint degeneration. IMPRESSION: Residual oral contrast material seen throughout the colon and in the rectal vault. Dictated by: Ghulam Okeefe M.D. on 01/04/2021 at 9:34 Approved by: Ghulam Okeefe M.D. on 01/04/2021 at 9:36
[2021-01-04] MEDS: ENOXAPARIN 40 MG/0.4 ML SYRINGE SUBCUT (09:21)
[2021-01-04] MEDS: TAMSULOSIN 0.4 MG CAPSULE PO (09:22)
[2021-01-04] MEDS: buPROPion XL 150 MG TAB PO (09:22)
[2021-01-04] MEDS: lisinopriL 20 MG TABLET 40 MG PO (09:22)
--- NOTE | 2021-01-04 18:42 | P.DS_ITS ---
History of Present Illness History of Present Illness Chief complaint: abdominal pain Narrative: The patient is a gentleman who developed abdominal pain earlier today. He had a normal bowel movement this morning. Has had no nausea or vomiting. He feels that his abdomen is bloated. He has had some minor abdomi nal discomfort over the years but nothing like this. He had a colonoscopy 8 or 9 years ago about the age of 51. No in his family of any has any intestinal cancer. The patient does note occasionally he hears sloshing in his abdomen. It sounds like fluid going back and forth. This is been going on for several years. His only prior abdominal operation was a laparoscopic repair of an umbilical hernia and perhaps 1 below it with mesh. Discharge Providers Provider Date of admission: 01/02/21 19:59 Discharge Date: 01/04/21 Consults: 01/02/21 21:23 Consult to Discharge Planning Routine Comment: Discharge provider: Nestor Saleem MD Summary Hospital Course Discharge Diagnosis: Acute small-bowel obstruction most likely secondary to adhesions from a prior umbilical hernia repair. Depression chronic Elevated cholesterol chronic Hypertension chronic Benign prostatic hypertrophy with symptoms chronic Obesity with a BMI of 36 chronic Hospital Course: Patient received fluid resuscitation an NG tube at admission. The following morning underwent a small-bowel follow-through. After 8 hours this and reach this rectum. X-rays the following morning revealed a fairly normal gas pattern and contrast throughout the colon. The stomach was decompressed. Patient was begun on a diet and advanced to a full liquid diet. The time of discharge he tolerated that without problem. Status at Discharge Cognitive/behavioral status at discharge: at baseline, oriented Functional status at discharge: independent ambulation Overall status at discharge: patient is back to baseline Time Spent with Patient Time spent: Less than 30 minutes Exam Vital Signs (past 8 hours): - 01/04/21 11:49 01/04/21 15:30 Temperature 97.6 F 98.1 F Pulse Rate 78 83 Respiratory Rate 16 18 Blood Pressure 149/83 H 143/92 H Pulse Oximetry 95 94 Oxygen Delivery Method Nasal Cannula Oxygen Flow Rate 0 Narrative Exam Narrative: Lungs are clear. Abdomen is protuberant and soft. No reaction to vigorous shaking. Objective Labs Result Diagrams: 01/04/21 05:00 01/04/21 05:00 Labs: Laboratory Results - last 24 hr 01/04/21 01/04/21 05:00 05:00 WBC 9.0 RBC 4.17 L Hgb 12.7 L Hct 38.5 L MCV 92.5 MCH 30.4 MCHC 32.9 RDW 14.0 Plt Count 195 Neut % (Auto) 80.9 H Lymph % (Auto) 7.9 L [place] % (Auto) 8.7 Eos % (Auto) 2.1 Baso % (Auto) 0.4 Neut # (Auto) 7300 H Lymph # (Auto) 700 L [place] # (Auto) 800 Eos # (Auto) 200 Baso # (Auto) 0 Sodium 137 Potassium 4.1 Chloride 103 Carbon Dioxide 34 H BUN 21 H Creatinine 0.67 Estimated GFR > 60.0 BUN/Creatinine Ratio 31.3 H Glucose 106 H Calcium 8.9 Magnesium 2.0 PFSH Medical History (Updated 01/03/21 @ 19:58 by Nestor Saleem MD) Abdominal pain Arthritis BPH (benign prostatic hyperplasia) Depression Hyperlipidemia Hypertension Influenza immunization not administered due to patient already having been immunized this season Surgical History (Updated 01/02/21 @ 20:40 by Nestor Saleem MD) Hx of umbilical hernia repair Social History (Updated 01/02/21 @ 18:37 by MANUEL Neal) household members: spouse Smoking Status: Current every day smoker Smokeless tobacco user: chewing tobacco alcohol intake: current substance use type: does not use Discharge Plan Discharge Plan Patient Disposition: Home Provider Discharge Comment: You had a small bowel obstruction probably related to scarring from your umbilical hernia repair with mesh. Try to avoid large amounts of into adjustable vegetables. These are things like Kale, Cabbage and greens. You can eat small amounts of them but do not eat large quantities all at 1 time. Return to the emergency room if the symptoms recur that brought you here in the 1st place. Discharge orders & Medications Prescriptions: Continued tamsulosin [Flomax] 0.4 MG capsule,extended release 24hr 0.4 mg PO QDAY Qty: 0 RF: 0 metoprolol tartrate 50 MG tablet 50 mg PO BID Qty: 0 RF: 0 ibuprofen [Advil] 200 MG tablet 200 mg PO Q4HP PRN (Reason: Pain (Scale Score 1-3)) Qty: 0 RF: 0 lisinopril 40 MG tablet 40 mg PO QDAY Qty: 30 RF: 0 bupropion HCl [Wellbutrin XL] 150 MG tablet extended release 24 hr 150 mg PO QDAY Qty: 30 RF: 0 atorvastatin 80 mg tablet 80 mg PO QPM RF: 0 sertraline 25 mg tablet 25 mg PO QPM RF: 0 Diet/Activity/Treatments Diet: Diet as Tolerated Diet comment: Keep food light for the next few days and then gradually resume normal food Activity: As tolerated Skin/Wound/Dressing Care Report to your healthcare provider any signs of infection, such as:: chills, fever and increased pain
== END 2021-01-04 19:25 | disposition home or self-care (01) | DRG 390 ==
LOC: ED 17:56 → AC 20:00
PROVIDERS: Admitting Provider Specialist; Emergency Provider Nurse Practitioner Family; Referring Provider Nurse Practitioner Family; Visit Provider Specialist
DX: K56.50 Intestinal adhesions [bands], unspecified as to partial versus complete obstruction (principal); F10.10 Alcohol abuse, uncomplicated; F32.9 Major depressive disorder, single episode, unspecified; I10 Essential (primary) hypertension; E78.5 Hyperlipidemia, unspecified; N40.1 Benign prostatic hyperplasia with lower urinary tract symptoms; E66.9 Obesity, unspecified; R35.0 Frequency of micturition; Z20.822 Contact with and (suspected) exposure to COVID-19; Z68.36 Body mass index [BMI] 36.0-36.9, adult; Z72.0 Tobacco use
CPT/HCPCS: 36415; 71045; 74022; 74177; 74250; 80048; 80053; 82550; 83605; 83690; 83735; 84484; 85025; 87635; 93005; 96361; 96374; 99221; 99232; 99238; 99283; 99284; J1650; J1885; J2270; Q9967

== ENCOUNTER → 2021-01-31 16:14 | Outpatient (CLI) | payer OTHER, SELFPAY ==
[2021-01-02 23:55] VITALS: BMI 35.9
[2021-01-31] MEDS: COVID-19 VACC, Ad26(JANSSEN)/PF 0.5 ML IM (16:23)
== END ==
PROVIDERS: Visit Provider Internal Medicine
DX: Z23 Encounter for immunization (principal)
CPT/HCPCS: 0031A; 91303

== ENCOUNTER 2025-04-19 13:45 | Outpatient (RCR) | payer OTHER, SELFPAY ==
[2021-01-02 23:55] VITALS: BMI 35.9
--- NOTE | 2025-03-08 15:00 | ST.OPIE ---
Visit Care Team Role Provider Type Belgica Haddad MD Family Provider Non-Staff Primary Care Provider Specialty: Family Practice Address: [address] [place] [address], [id number] Email: MANUEL Ramirez Attending Provider Non-Staff Referring Provider Specialty: Nursing Address: [facility], [address] [place] [address], [id number] Email: Speech-Language Pathology Initial Evaluation CPO Adult Cognitive Linguistic Eval Start: 03/08/25 14:13 Freq: Status: Active Protocol: Document 03/08/25 14:13 SS (Rec: 03/08/25 15:00 SS Desktop) Adult Cognitive Linguistic Evaluation Session Time Visit Start Time 09:45 Visit Stop Time 10:30 Total Visit Minutes 45 Visit Information Visit Number Initial evaluation (11/06) Plan of Care Dates 03/08/2025-06/08/2025 Insurance Information [employer] ( x12 visits) Referral Referring Provider MANUEL Morris Reason for Referral Language and memory concerns s /p left MCA infarct Setting Assessment Location Outpatient Care Visit Type Note Type Initial evaluation Next Note Type Next Note Type Treatment Note Patient Information Identification Type Name Patient History Bernabe Siddiqi is a 65-year-old male, referred for a speech/ language/cognition evaluation by MANUEL Morris due to concerns regarding symptoms of cognitive difficulty s/p left MCA infarct. PMHx includes HLD, HTN, hypothyroidism, BPH, and depression. Per medical records, on 01/23/25, pt presented with left hand injury due to accent at work when using a planer. 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 He became hypotensive with depressed LOC. When he awoke, he was confused and noted to be aphasic. CTH revelated multifocal ICAD with critically stenosed vs. occluded left M2 and small infarct. Most of his cognitive -communication symptoms have improved. However, during recent follow-up visit he reported trouble pronouncing words, forgetting details during IADLs (e.g., address), and is concerned about returning to work and completing baseline tasks safely. Pt lives with his , Yadira. Pt endorsed word- finding and memory difficulty. Specifically, he occasionally produces phonemic paraphasias and has instances of anomia during conversation (names of places and common items). He denied difficulty understanding communication partners, however, endorses communication difficulty. He also reported short-term memory difficulties, such as not remembering dates/times of appointments, forgetting if heh had taken his medications, or forgetting steps during familiar daily tasks. He denied changes to voice or swallowing. Currently, he is reliant on his for medication management, peer financial counselor, and household management. He is currently on leave from work, but would like to transition to a training/educational role . Pt stated that his primary goal for treatment is ?to get back to where I was cognitively? and ?return to work?. 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 He was engaged throughout. Mental Status Alert,Responsive,Cooperative Informal Assessment Receptive Language Normal Yes Expressive Language Normal No Expressive Language Impairment(s) Expression of complex thoughts /ideas Pragmatic Language Normal Yes Speech Normal Yes Cognition Normal No Cognitive Impairment(s) Attention,Short-term memory, Executive functioning Formal Assessment Standardized Test/Screener Type Cognitive Linguistic Quick Test (CLQT) Administration Complete Results The Cognitive Linguistic Quick Test (CLQT) was administered to obtain information regarding the pt?s cognitive abilities. The CLQT assesses five cognitive domains: attention, memory, executive functioning, language, and visuospatial skills. A domain and severity rating is calculated. Scores fall within a WNL and severe range describing a pt?s level of impairment. Additionally, a composite severity range is calculated. A score of 3.5-4. 0 is WNL, 2.5-3.4 is mild, 1.5 -2.4 is moderate, and 1.0-1.4 is severe. The pt scored as follows: Attention: 178 Mild impairment Memory: 150 Mild impairment Executive Functions: 26 WNL Language: 32 WNL Visuospatial Skills: 81 Mild impairment Clock Drawin WNL Composite Severity Range: 3.4 Mild cognitive-communication impairment Pt displayed mild impairment in the memory domain. During the story memory task, the pt was read a story and asked to recall as many details as possible. He recalled 9/18 details. He used self-talk during the task, though this strategy was not effective. He also required additional time to think, with little to no improvement in recall. The pt was then asked yes/no questions regarding the details in the story and responded to 5/6 accurately. He stated he was unsure of several of the responses and required additional time to think of the response. The pt demonstrated mild impairment in the attention domain. During the Symbol Trails task, the pt was asked to complete a trial alternating in sizes and shapes. He scored 3/10 and expressed he felt frustrated that he was unable to complete this task accurately, as it would have been much easier for him prior to the CVA. During the Design Generation task, he was asked to create as many designs as he could by connecting four dots using four lines. Pt was able to create 7/13 correct designs. He again stated that this task would have been less effortful for him before the stroke. Pt demonstrated mild impairment in the visuospatial domain. He demonstrated difficulty during the Symbol Trails and Design Generations tasks as explained above. Findings/Results Language Function Mildly impaired Cognitive Function Mildly impaired Findings Pt demonstrated mild cognitive -communication impairments c/b deficits in the areas of attention, memory, word- finding and visuospatial skills. He is at elevated risk of making critical errors with tasks such as medication management, peer financial counselor, and completion of cork sorter, as well as everyday tasks that require adequate skills in the areas of attention, immediate and delayed memory, and executive functioning. Pt expresses that due to his cognitive- communication impairments, he is concerned about making mistakes when completing IADLs and returning to work. Word- finding difficulty in conversation has impacted his communication and has resulted in feelings of frustration and embarrassment. 1:[address] with the goal of providing therapeutic education and training in use of potentially beneficial cognitive-communication compensatory strategies, specifically targeting attention and immediate and delayed memory for improved safety and independence in the home and at the workplace. Also recommend treatment targeting word-finding for improved to prevent communication breakdowns and increase communicative confidence. Pt may benefit from education and training in internal and external compensatory strategies for memory, strategies for attention and executive functioning, use of compensatory strategy of circumlocution, and education in holistic lifestyle factors supported by research to have a positive impact on cognition . Prognosis for improvement is good due to pt motivation and strong support from the pt?s spouse. Plan for pt to participate in [facility] services addressing cognitive- communication at a frequency of 1x/week for 8-12 weeks. CPO provided education re: the role of the CPO in cognitive- communication therapy. Educated pt re: goals for therapy and facilitated discussion re: collaborative goals for treatment. Pt expressed understanding of education provided on this date. He plans to complete Multifactorial memory Questionnaire and note specific areas of challenge that he would like to address before next session. Prognosis Prognosis Good Based on Cognitive status,Family support,Comorbidities,Duration of symptoms/severity,Time since onset Plan of Care Speech-Language Treatment Yes Frequency 1x/week Duration 3 months Patient/Caregiver Education Described results of evaluation,Patient expressed understanding of evaluation, Patient expressed agreement with goals and treatment plans ,Family/caregivers expressed understanding of evaluation, Family/caregivers expressed agreement with goals and treatment plan Short Term Goals 1. Patient will be educated about holistic lifestyle factors that are supported by research to have a positive impact on cognition (ex: sleep , exercise, diet, social engagement) and will demonstrate understanding via teach-back. 2. Patient will explore external compensatory strategies through education and application, in order to select 1-2 that are a best fit for daily needs (ex: calendar and writing lists). 3. Patient will participate in internal memory strategy (ex: visualization and rehearsal) education and training, in order to select 1-2 that are best fit for daily needs. 4. Patient will implement compensatory strategies for word-finding (such as circumlocution) with 80% accuracy with minimal cueing to repair communication breakdowns in daily conversations. 5. Patient will demonstrate use of cognitive compensatory strategies across moderately complex problem solving/ organizational tasks across 3 consecutive sessions to support independence with completion of IADLs and return to work. Longterm Goals Patient will complete cognitive communication tasks with independent use of strategies or tools as needed to complete baseline tasks without difficulty.
--- NOTE | 2025-03-08 15:01 | ST.OPPOC ---
Physical, Occupational & Speech Therapy At [facility] Visit Care Team Role Provider Type Belgica Haddad MD Family Provider Non-Staff Primary Care Provider Address: [address] [place] [address], [id number] MANUEL Ramirez Attending Provider Non-Staff Referring Provider Address: [facility] Stroke [facility], [address] [place] [address], [id number] Speech Pathology Plan of Care Plan of Care Dates 03/08/2025-06/08/2025 Referring Provider MANUEL Morris Patient History Bernabe Siddqii is a 65-year-old male, referred for a speech/language/cognition evaluation by MANUEL Morris due to concerns regarding symptoms of cognitive difficulty s/p left MCA infarct. PMHx includes HLD, HTN, hypothyroidism, BPH, and depression. Per medical records, on , pt presented with left hand injury due to accent at work when using a planer. 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 He became hypotensive with depressed LOC. When he awoke, he was confused and noted to be aphasic. CTH revelated multifocal ICAD with critically stenosed vs. occluded left M2 and small infarct. Most of his cognitive-communication symptoms have improved. However, during recent follow-up visit he reported trouble pronouncing words, forgetting details during IADLs (e.g., address), and is concerned about returning to work and completing baseline tasks safely. Pt lives with his , Yadira. Pt endorsed word-finding and memory difficulty. Specifically, he occasionally produces phonemic paraphasias and has instances of anomia during conversation (names of places and common items). He denied difficulty understanding communication partners, however, endorses communication difficulty. He also reported short-term memory difficulties, such as not remembering dates/times of appointments, forgetting if heh had taken his medications, or forgetting steps during familiar daily tasks. He denied changes to voice or swallowing. Currently, he is reliant on his for medication management, financial internship, and household management. He is currently on leave from work, but would like to transition to a training/educational role. Pt stated that his primary goal for treatment is ?to get back to where I was cognitively? and ?return to work?. Short Term Goals 1. Patient will be educated about holistic lifestyle factors that are supported by research to have a positive impact on cognition (ex: sleep, exercise, diet, social engagement) and will demonstrate understanding via teach-back. 2. Patient will explore external compensatory strategies through education and application, in order to select 1-2 that are a best fit for daily needs (ex: calendar and writing lists). 3. Patient will participate in internal memory strategy (ex: visualization and rehearsal) education and training, in order to select 1-2 that are best fit for daily needs. 4. Patient will implement compensatory strategies for word-finding (such as circumlocution) with 80% accuracy with minimal cueing to repair communication breakdowns in daily conversations. 5. Patient will demonstrate use of cognitive compensatory strategies across moderately complex problem solving/organizational tasks across 3 consecutive sessions to support independence with completion of IADLs and return to work. Half-Way Goals Patient will complete cognitive communication tasks with independent use of strategies or tools as needed to complete baseline tasks without difficulty. Comment: Electronically Signed by: GASTON Og 03/08/25 1469 If you are in agreement with this Plan of Care, please return a signed and dated copy. I have reviewed this Plan of Care and certify that the skilled therapy services above are required to meet the patient?s needs. Physician Signature Date Printed Name and Credentials Clinical Instructor Signature Printed Name and Credentials
--- NOTE | 2025-03-08 15:05 | ST-OP ANOTE ---
Physical, Occupational & Speech Therapy At [facility] Speech Therapy Note POC sent to pt's PCP (Belgica Haddad MD) and referring provider (MANUEL Morris) requesting signature if in agreement.
--- NOTE | 2025-03-15 10:43 | ST.OPTN ---
Visit Care Team Role Provider Type Belgica Haddad MD Family Provider Non-Staff Primary Care Provider Address: [address] [place] [address], [phone] MANUEL Ramirez Attending Provider Non-Staff Referring Provider Address: [facility] Stroke [facility], [address] [place] [address], [phone] PARK ATTENDANT Treatment Note PARK ATTENDANT Treatment Note Start: 03/08/25 14:13 Freq: Status: Active Protocol: Document 03/15/25 10:28 SS (Rec: 03/15/25 10:43 SS Desktop) Speech Pathology Treatment Note Session Time Visit Start Time 09:45 Visit Stop Time 10:20 Total Visit Minutes 35 Visit Information Visit Number 12/07 Plan of Care Dates 03/08/2025-06/08/2025 Insurance Information [employer] ( x12 visits) Setting Treatment Setting Outpatient Care Visit Type Note Type Treatment Note Next Note Type Next Note Type Treatment Note General Information Patient History Bernabe Siddiqi is a 65-year-old male, referred for a speech/ language/cognition evaluation by MANUEL Morris due to concerns regarding symptoms of cognitive difficulty s/p left MCA infarct. PMHx includes HLD, HTN, hypothyroidism, BPH, and depression. Per medical records, on 01/23/25, pt presented with left hand injury due to accent at work when using a planer. 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 He became hypotensive with depressed LOC. When he awoke, he was confused and noted to be aphasic. CTH revelated multifocal ICAD with critically stenosed vs. occluded left M2 and small infarct. Most of his cognitive -communication symptoms have improved. However, during recent follow-up visit he reported trouble pronouncing words, forgetting details during IADLs (e.g., address), and is concerned about returning to work and completing baseline tasks safely. Pt lives with his , Yadira. Pt endorsed word- finding and memory difficulty. Specifically, he occasionally produces phonemic paraphasias and has instances of anomia during conversation (names of places and common items). He denied difficulty understanding communication partners, however, endorses communication difficulty. He also reported short-term memory difficulties, such as not remembering dates/times of appointments, forgetting if heh had taken his medications, or forgetting steps during familiar daily tasks. He denied changes to voice or swallowing. Currently, he is reliant on his for medication management, manager financial systems, and household management. He is currently on leave from work, but would like to transition to a training/educational role . Pt stated that his primary goal for treatment is ?to get back to where I was cognitively? and ?return to work?. Subjective Observations/Patient Presentation Pt arrived to the session on time with his , Yadira, who did not accompany him to the session. He was engaged and motivated throughout the session. Objective Short Term Goals 1. Patient will be educated about holistic lifestyle factors that are supported by research to have a positive impact on cognition (ex: sleep , exercise, diet, social engagement) and will demonstrate understanding via teach-back. 2. Patient will explore external compensatory strategies through education and application, in order to select 1-2 that are a best fit for daily needs (ex: calendar and writing lists). 3. Patient will participate in internal memory strategy (ex: visualization and rehearsal) education and training, in order to select 1-2 that are best fit for daily needs. 4. Patient will implement compensatory strategies for word-finding (such as circumlocution) with 80% accuracy with minimal cueing to repair communication breakdowns in daily conversations. 5. Patient will demonstrate use of cognitive compensatory strategies across moderately complex problem solving/ organizational tasks across 3 consecutive sessions to support independence with completion of IADLs and return to work. Intermediate Goals Patient will complete cognitive communication tasks with independent use of strategies or tools as needed to complete baseline tasks without difficulty. Treatment Activities Education re: assessment results from previous session. Used pt responses to Multifactorial Memory Questionnaire to guide conversation re: pt goals for treatment and collaborative goal setting. Introduced external memory aids, including use of habitat conservation planner, pill box, and medication management visual aid, to target areas of difficulty reported by pt. Assessment Patient Response to Treatment Good Rehab Potential Good Impairments Identified Cognitive communication Progress Towards Goals Good Progress Assessment of Overall Progress Improving Assessment of Improvement PARK ATTENDANT provided verbal education re: test results from the assessment session, strengths, weaknesses, how tests are used (to compare performance of those with similar ages and education levels without stroke, to pt?s current function status post CVA). Pt expressed understanding of results and stated they were consistent with his observations. Pt brought completed MMQ to session. PARK ATTENDANT facilitated discussion re: pt?s perceptions of his current cognitive-communication functions as well as areas he would like to target in treatment for collaborative goal setting. Pt identified the following areas as treatment targets: names of people and places, retrieving specific words, losing train of thought in conversation, remembering details for events and conversations, taking medications, and forgetting dates. Pt explained that his has taken on responsibility for many tasks that he used to be independent with and he would like to ease her burden and complete these tasks himself. Recommended pt and sit down and make a list of skills and tasks they would like for him to be able to do, which he was agreeable to. Introduced external memory aids for several areas of concern today. Given difficulty with remembering dates of special occasions, appointment dates/times, to-do tasks, and details form conversation, recommended pt get a monthly/weekly habitat conservation planner. Pt agreeable to this and stated he thought it would be very helpful. Plan to set-up habitat conservation planner and initiate use in next session. Additionally, discussed several strategies for medication management. Currently, pt?s uses a list and hands him his medications to take. Pt previously used a pill box, but is not taking more medications and is concerned about correct dosage and time of day. Recommended pt bring updated medication list to next session in order to identify correct size of new pill box and create a visual chart pt can reference to ensure accuracy. Pt agreeable to this recommendation. PARK ATTENDANT provided written recommendations discussed in session to ensure recall. Pt expressed he is highly motivated to work on his cognition and return as close as possible to his baseline function. Follow up at frequency of once a week given pt progress. Plan Amount of Therapy Recommended 3 Months Frequency of Treatment Once a Week Length of Session 30 Minutes Therapeutic Contents Client Education,Cognitive- Linguistic Training,Home Exercise Program Provided Patient/Caregiver Instruction Plan of Care,Questions/ Concerns Therapy Recommendations Continue with Current Program
--- NOTE | 2025-03-22 17:01 | ST.OPTN ---
Visit Care Team Role Provider Type Belgica Haddad MD Family Provider Non-Staff Primary Care Provider Address: [address] [place] [address], [id number] MANUEL Ramirez Attending Provider Non-Staff Referring Provider Address: [facility], [address] [place] [address], [id number] SHIP'S ENGINEER Treatment Note SHIP'S ENGINEER Treatment Note Start: 03/08/25 14:13 Freq: Status: Active Protocol: Document 03/22/25 16:49 SS (Rec: 03/22/25 17:01 SS Desktop) Speech Pathology Treatment Note Session Time Visit Start Time 14:30 Visit Stop Time 15:10 Total Visit Minutes 40 Visit Information Visit Number 01/04 Plan of Care Dates 03/08/2025-06/08/2025 Insurance Information [employer] ( x12 visits) Setting Treatment Setting Outpatient Care Visit Type Note Type Treatment Note Next Note Type Next Note Type Treatment Note General Information Patient History Bernabe Siddiqi is a 65-year-old male, referred for a speech/ language/cognition evaluation by MANUEL Morris due to concerns regarding symptoms of cognitive difficulty s/p left MCA infarct. PMHx includes HLD, HTN, hypothyroidism, BPH, and depression. Per medical records, on 01/23/25, pt presented with left hand injury due to accent at work when using a planer. 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 He became hypotensive with depressed LOC. When he awoke, he was confused and noted to be aphasic. CTH revelated multifocal ICAD with critically stenosed vs. occluded left M2 and small infarct. Most of his cognitive -communication symptoms have improved. However, during recent follow-up visit he reported trouble pronouncing words, forgetting details during IADLs (e.g., address), and is concerned about returning to work and completing baseline tasks safely. Pt lives with his , Yadira. Pt endorsed word- finding and memory difficulty. Specifically, he occasionally produces phonemic paraphasias and has instances of anomia during conversation (names of places and common items). He denied difficulty understanding communication partners, however, endorses communication difficulty. He also reported short-term memory difficulties, such as not remembering dates/times of appointments, forgetting if heh had taken his medications, or forgetting steps during familiar daily tasks. He denied changes to voice or swallowing. Currently, he is reliant on his for medication management, financial accounting manager, and household management. He is currently on leave from work, but would like to transition to a training/educational role . Pt stated that his primary goal for treatment is ?to get back to where I was cognitively? and ?return to work?. Subjective Observations/Patient Presentation Pt arrived to the session on time with his , Yadira, who did not accompany him to the session. He was engaged and motivated throughout the session. Objective Short Term Goals 1. Patient will be educated about holistic lifestyle factors that are supported by research to have a positive impact on cognition (ex: sleep , exercise, diet, social engagement) and will demonstrate understanding via teach-back. 2. Patient will explore external compensatory strategies through education and application, in order to select 1-2 that are a best fit for daily needs (ex: calendar and writing lists). 3. Patient will participate in internal memory strategy (ex: visualization and rehearsal) education and training, in order to select 1-2 that are best fit for daily needs. 4. Patient will implement compensatory strategies for word-finding (such as circumlocution) with 80% accuracy with minimal cueing to repair communication breakdowns in daily conversations. 5. Patient will demonstrate use of cognitive compensatory strategies across moderately complex problem solving/ organizational tasks across 3 consecutive sessions to support independence with completion of IADLs and return to work. Snf Goals Patient will complete cognitive communication tasks with independent use of strategies or tools as needed to complete baseline tasks without difficulty. Treatment Activities Continued implementing external memory aids for medication management. Initiated use of senior program planner to increase ability to independently complete to-do tasks. Briefly reviewed strategies for communication effectiveness given persistence of occasional phonemic paraphasias. Reviewed home practice. Assessment Patient Response to Treatment Good Rehab Potential Good Impairments Identified Cognitive communication Progress Towards Goals Good Progress Assessment of Overall Progress Improving Assessment of Improvement Facilitated discussion re: current observations and concerns. Pt reported he has purchased a larger pillbox and has been filling it daily. His checks his work, but he has been able to fill it correctly so far. He has not missed any dosages, but is afraid he will. Initiated use of medication list that pt can aixa off daily. Pt assisted SHIP'S ENGINEER in development of personal medication list - which includes time of day taken, medication name, dosage, and purpose. The list is organized by time of day. Pt assisted SHIP'S ENGINEER in locating medication names and dosages from printed medication list he brought from home, and participated in discussion re: the purpose of each medication. SHIP'S ENGINEER to laminate visual aid. Paper copy provided to pt to begin utilizing. Pt also reported that he had missed one appointment in the past week. He is now using a weekly senior program planner in which he writes important events and appointments to increase recall. He stated this has been very helpful. Pt also created a list with his of to-do tasks he would like to do more independently. SHIP'S ENGINEER assisted pt in identifying day of the week/time of day for completing tasks and prompted pt to write down to-do tasks in senior program planner. Pt to report back on progress in next session. Given ongoing paraphasias, SHIP'S ENGINEER briefly reviewed strategies. Pt has excellent awareness of paraphasias and is able to catch his errors and correct them within seconds. Provided education re: the following strategies: use of self- advocacy and asking communication partner for increased time, circumlocution , first letter/sound, and taking a deep breath to reduce feelings of overwhelm. Pt expressed he will try to implement these strategies and note if it increases his overall communicative confidence. SHIP'S ENGINEER again provided written recommendations discussed in session to ensure recall. Plan to follow up on use of strategies for medication management, use of senior program planner for recall of dates and to-do tasks, and communication strategies. Introduce additional strategies as pt continues to implement previously introduced strategies/tools. Follow up at frequency of once a week given pt progress. Plan Amount of Therapy Recommended 3 Months Frequency of Treatment Once a Week Length of Session 30 Minutes Therapeutic Contents Client Education,Cognitive- Linguistic Training,Home Exercise Program Provided Patient/Caregiver Instruction Plan of Care,Questions/ Concerns Therapy Recommendations Continue with Current Program
--- NOTE | 2025-03-29 17:13 | ST.OPTN ---
Visit Care Team Role Provider Type Belgica Haddad MD Family Provider Non-Staff Primary Care Provider Address: [address] [place] [address], [id number] MANUEL Ramirez Attending Provider Non-Staff Referring Provider Address: [facility] Stroke [facility], [address] [place] [address], [id number] MANAGER PROTEIN Treatment Note MANAGER PROTEIN Treatment Note Start: 03/08/25 14:13 Freq: Status: Active Protocol: Document 03/29/25 17:01 SS (Rec: 03/29/25 17:13 SS Desktop) Speech Pathology Treatment Note Session Time Visit Start Time 16:15 Visit Stop Time 17:00 Total Visit Minutes 45 Visit Information Visit Number 02/04 Plan of Care Dates 03/08/2025-06/08/2025 [employer] (x12 visits) Information Setting Treatment Setting Outpatient Care Visit Type Note Type Treatment Note Next Note Type Next Note Type Treatment Note General Information Patient History Bernabe Siddiqi is a 65-year-old male, referred for a speech/language/cognition evaluation by MANUEL Morris due to concerns regarding symptoms of cognitive difficulty s/p left MCA infarct. PMHx includes HLD, HTN, hypothyroidism, BPH, and depression. Per medical records, on 01/23/25, pt presented with left hand injury due to accent at work when using a planer. 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 He became hypotensive with depressed LOC. When he awoke, he was confused and noted to be aphasic. CTH revelated multifocal ICAD with critically stenosed vs. occluded left M2 and small infarct. Most of his cognitive- communication symptoms have improved. However, during recent follow-up visit he reported trouble pronouncing words, forgetting details during IADLs (e.g., address), and is concerned about returning to work and completing baseline tasks safely. Pt lives with his , Yadira. Pt endorsed word-finding and memory difficulty. Specifically, he occasionally produces phonemic paraphasias and has instances of anomia during conversation (names of places and common items). He denied difficulty understanding communication partners, however, endorses communication difficulty. He also reported short-term memory difficulties, such as not remembering dates/times of appointments, forgetting if heh had taken his medications, or forgetting steps during familiar daily tasks. He denied changes to voice or swallowing. 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 He is currently on leave from work, but would like to transition to a training/ educational role. Pt stated that his primary goal for treatment is ?to get back to where I was cognitively? and ?return to work?. Subjective Observations/Patient Pt arrived to the session on time with his , Yadira, Whit who did not accompany him to the session. He was engaged and motivated throughout the session. Objective Short Term Goals 1. Patient will be educated about holistic lifestyle factors that are supported by research to have a positive impact on cognition (ex: sleep, exercise, diet , social engagement) and will demonstrate understanding via teach-back. 2. Patient will explore external compensatory strategies through education and application, in order to select 1-2 that are a best fit for daily needs (ex: calendar and writing lists). 3. Patient will participate in internal memory strategy (ex: visualization and rehearsal) education and training, in order to select 1-2 that are best fit for daily needs. 4. Patient will implement compensatory strategies for word-finding (such as circumlocution) with 80% accuracy with minimal cueing to repair communication breakdowns in daily conversations. 5. Patient will demonstrate use of cognitive compensatory strategies across moderately complex problem solving/organizational tasks across 3 consecutive sessions to support independence with completion of IADLs and return to work. Pipe Organ Mechanic Goals Patient will complete cognitive communication tasks with independent use of strategies or tools as needed to complete baseline tasks without difficulty. Treatment Activities Continued implementing external memory aids for IADLs and return to work. Provided education re: holistic lifestyle factors that impact cognition. Discussed word -finding and communication strategies to implement in conversation. Reviewed home practice. Assessment Patient Response to Good Treatment Rehab Potential Good Impairments Cognitive communication Identified Progress Towards Good Progress Goals Assessment of Improving Overall Progress Assessment of Facilitated discussion re: current observations and Improvement concerns. Pt reported he has been filling his pillbox and utilizing medication list created last session accurately every day. He is also now using his supply chain planner consistently and writing down scheduled events and to- do tasks. He expressed that this has been very helpful and he now feels he has better quality of life. He is doing well with completing ADLs and IADLs given ongoing physical limitations. Reviewed word-finding and communication strategies as pt is concerned about word-finding difficulties when he return to work next month. He is currently demonstrating very infrequent instances anomia and is able to use circumlocution effectively. Discussed importance of using of self-advocacy, explaining remaining deficits, and asking communication partners for increased time or assistance as needed. Reviewed use of circumlocution, first letter/sound, and using similar words. Pt reported he feels confident in utilizing these strategies and will continue to practice outside of ST sessions. Provided education re: additional external memory strategies as pt is planning to return to work in a month. Recommended pt begin to write down important details from conversations, procedures that he has to follow at work with checkboxes, and to-do tasks that he has to follow up on. Additionally, recommended pt use voice recording during meetings as needed and timers/ alarms to remember to take breaks to reduce fatigue and increase energy management. Pt agreeable and expressed he will begin to implement these strategies. MANAGER PROTEIN again provided written recommendations discussed in session to ensure recall. Plan to follow up on use of strategies for memory and word-finding trained today. Introduce additional strategies as appropriate. May reduce frequency to every other week given progress to date. Reviewed with Progress Being Made,Home Exercise Program Patient Patient/Caregiver Excellent Understanding Plan Amount of Therapy 3 Months Recommended Frequency of Once a Week Treatment Length of Session 30 Minutes Therapeutic Contents Client Education,Cognitive-Linguistic Training,Home Exercise Program Provided Patient/ Plan of Care,Questions/Concerns Caregiver Instruction Therapy Continue with Current Program Recommendations
--- NOTE | 2025-04-05 14:34 | ST.OPTN ---
Visit Care Team Role Provider Type Belgica Haddad MD Family Provider Non-Staff Primary Care Provider Address: [address] [place] [address], [id number] MANUEL Ramirez Attending Provider Non-Staff Referring Provider Address: [facility], [address] [place] [address], [id number] COMPUTATIONAL LINGUIST Treatment Note COMPUTATIONAL LINGUIST Treatment Note Start: 03/08/25 14:13 Freq: Status: Active Protocol: Document 04/05/25 14:22 SS (Rec: 04/05/25 14:34 SS Desktop) Speech Pathology Treatment Note Session Time Visit Start Time 13:45 Visit Stop Time 14:22 Total Visit Minutes 37 Visit Information Visit Number 03/06 Plan of Care Dates 03/08/2025-06/08/2025 [employer] (x12 visits) Information Setting Treatment Setting Outpatient Care Visit Type Note Type Treatment Note Next Note Type Next Note Type Treatment Note General Information Patient History Bernabe Siddiqi is a 65-year-old male, referred for a speech/language/cognition evaluation by MANUEL Morris due to concerns regarding symptoms of cognitive difficulty s/p left MCA infarct. PMHx includes HLD, HTN, hypothyroidism, BPH, and depression. Per medical records, on 01/23/25, pt presented with left hand injury due to accent at work when using a planer. 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 He became hypotensive with depressed LOC. When he awoke, he was confused and noted to be aphasic. CTH revelated multifocal ICAD with critically stenosed vs. occluded left M2 and small infarct. Most of his cognitive- communication symptoms have improved. However, during recent follow-up visit he reported trouble pronouncing words, forgetting details during IADLs (e.g., address), and is concerned about returning to work and completing baseline tasks safely. Pt lives with his , Yadira. Pt endorsed word-finding and memory difficulty. Specifically, he occasionally produces phonemic paraphasias and has instances of anomia during conversation (names of places and common items). He denied difficulty understanding communication partners, however, endorses communication difficulty. He also reported short-term memory difficulties, such as not remembering dates/times of appointments, forgetting if heh had taken his medications, or forgetting steps during familiar daily tasks. He denied changes to voice or swallowing. Currently, he is reliant on his for medication management, director financial planning, and household management. He is currently on leave from work, but would like to transition to a training/ educational role. Pt stated that his primary goal for treatment is ?to get back to where I was cognitively? and ?return to work?. Subjective Observations/Patient Pt arrived to the session on time. He was engaged and Presentation motivated throughout the session. Objective Short Term Goals 1. Patient will be educated about holistic lifestyle factors that are supported by research to have a positive impact on cognition (ex: sleep, exercise, diet , social engagement) and will demonstrate understanding via teach-back. 2. Patient will explore external compensatory strategies through education and application, in order to select 1-2 that are a best fit for daily needs (ex: calendar and writing lists). 3. Patient will participate in internal memory strategy (ex: visualization and rehearsal) education and training, in order to select 1-2 that are best fit for daily needs. 4. Patient will implement compensatory strategies for word-finding (such as circumlocution) with 80% accuracy with minimal cueing to repair communication breakdowns in daily conversations. 5. Patient will demonstrate use of cognitive compensatory strategies across moderately complex problem solving/organizational tasks across 3 consecutive sessions to support independence with completion of IADLs and return to work. Mcc Goals Patient will complete cognitive communication tasks with independent use of strategies or tools as needed to complete baseline tasks without difficulty. Treatment Activities Reviewed current observations/concerns re: overall cognitive function. Implemented Semantic Feature Analysis and provided home practice. Assisted pt in creating a statement for return to work explaining residual affects of stroke and how he plans to mitigate them. Assessment Patient Response to Good Treatment Rehab Potential Good Impairments Cognitive communication Identified Progress Towards Good Progress Goals Assessment of Improving Overall Progress Assessment of Facilitated discussion re: current observations and Improvement concerns. Pt expressed he has no current concerns re: completing baseline IADLs, such as keeping track of appointments, completing chores, or managing his medications. He expressed that use of weekly production control planner and use of pill box have been very helpful. Pt reported minimal word-finding difficulty in conversation, though this continues to cause him ongoing frustration and negative attitudes toward his communication abilities. Semantic Feature Analysis (SFA ) implemented to target anomia and use of circumlocution for improved word retrieval. The pt was provided with a visual graphic organizer with six categories (category/group, use, action, properties, location, and association) and was asked to generate words across the six categories for personally-relevant , functional words. He produced an average of 15+ words per target photo, increasing to 20+ words given minimal cueing. Pt expressed he feels motivated to begin utilizing principles of SFA in conversations as he currently pauses when having word-finding difficulty , which leads to a pause in the conversation. Pt expressed he feels concerned about returning to work following stroke and is unsure how coworkers will react. Assisted pt in creating a self-advocacy statement. Statement included information about his stroke and injury, residual cognitive-communication challenges, and explanation of strategies that pt has been using to alleviate these challenges. Pt stated he feels comfortable discussing this at the workplace and believes it will make his transition back to work smoother. Plan to follow up on use of strategies for memory and word-finding trained in next session. Introduce additional strategies as appropriate. Reduced frequency of treatment to every other week given progress to date and pt returning to work soon. Reviewed with Progress Being Made,Home Exercise Program Patient Patient/Caregiver Excellent Understanding Plan Amount of Therapy 3 Months Recommended Frequency of Once a Week Treatment Comment Every other week Length of Session 30 Minutes Therapeutic Contents Client Education,Cognitive-Linguistic Training,Home Exercise Program Provided Patient/ Plan of Care,Questions/Concerns Caregiver Instruction Therapy Continue with Current Program Recommendations
--- NOTE | 2025-04-19 16:31 | ST.OPTN ---
Visit Care Team Role Provider Type Belgica Haddad MD Family Provider Non-Staff Primary Care Provider Address: [address] [place] [address], [id number] MANUEL Ramirez Attending Provider Non-Staff Referring Provider Address: [facility], [address] [place] [address], [id number] SQL SERVER CONSULTANT Treatment Note SQL SERVER CONSULTANT Treatment Note Start: 03/08/25 14:13 Freq: Status: Active Protocol: Document 04/19/25 16:20 SS (Rec: 04/19/25 16:31 SS Desktop) Speech Pathology Treatment Note Session Time Visit Start Time 13:45 Visit Stop Time 14:15 Total Visit Minutes 30 Visit Information Visit Number 04/06 Plan of Care Dates 03/08/2025-06/08/2025 [employer] (x12 visits) Information Setting Treatment Setting Outpatient Care Visit Type Note Type Treatment Note Next Note Type Next Note Type Discharge Summary General Information Patient History eBrnabe Siddiqi is a 65-year-old male, referred for a speech/language/cognition evaluation by MANUEL Morris due to concerns regarding symptoms of cognitive difficulty s/p left MCA infarct. PMHx includes HLD, HTN, hypothyroidism, BPH, and depression. Per medical records, on 01/23/25, pt presented with left hand injury due to accent at work when using a planer. 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 He became hypotensive with depressed LOC. When he awoke, he was confused and noted to be aphasic. CTH revelated multifocal ICAD with critically stenosed vs. occluded left M2 and small infarct. Most of his cognitive- communication symptoms have improved. However, during recent follow-up visit he reported trouble pronouncing words, forgetting details during IADLs (e.g., address), and is concerned about returning to work and completing baseline tasks safely. Pt lives with his , Yadira. Pt endorsed word-finding and memory difficulty. Specifically, he occasionally produces phonemic paraphasias and has instances of anomia during conversation (names of places and common items). He denied difficulty understanding communication partners, however, endorses communication difficulty. He also reported short-term memory difficulties, such as not remembering dates/times of appointments, forgetting if heh had taken his medications, or forgetting steps during familiar daily tasks. He denied changes to voice or swallowing. Currently, he is reliant on his for medication management, director patient financial services, and household management. He is currently on leave from work, but would like to transition to a training/ educational role. Pt stated that his primary goal for treatment is ?to get back to where I was cognitively? and ?return to work?. Subjective Observations/Patient Pt arrived to the session on time. He was engaged and Presentation motivated throughout the session. Objective Short Term Goals 1. Patient will be educated about holistic lifestyle factors that are supported by research to have a positive impact on cognition (ex: sleep, exercise, diet , social engagement) and will demonstrate understanding via teach-back. (lacho met) 2. Patient will explore external compensatory strategies through education and application, in order to select 1-2 that are a best fit for daily needs (ex: calendar and writing lists). (goat met) 3. Patient will participate in internal memory strategy (ex: visualization and rehearsal) education and training, in order to select 1-2 that are best fit for daily needs. (goat met) 4. Patient will implement compensatory strategies for word-finding (such as circumlocution) with 80% accuracy with minimal cueing to repair communication breakdowns in daily conversations. (goat met) 5. Patient will demonstrate use of cognitive compensatory strategies across moderately complex problem solving/organizational tasks across 3 consecutive sessions to support independence with completion of IADLs and return to work. (goat met) Strike Plate Attacher Goals Patient will complete cognitive communication tasks with independent use of strategies or tools as needed to complete baseline tasks without difficulty. (goat met) Treatment Activities Reviewed current observations/concerns re: overall cognitive function. Continued implementing Semantic Feature Analysis and utilized in conversation for carryover. Reviewed use of word-finding, memory, and executive functioning strategies. Discharge complete today as pt feels he is back at baseline and has met his STG and LTG. Assessment Patient Response to Good Treatment Rehab Potential Good Impairments Cognitive communication Identified Progress Towards Good Progress,Goals Met,Appropriate for Discharge Goals Assessment of Improving,Rehabilitated Overall Progress Assessment of Facilitated discussion re: current observations and Improvement concerns. Pt expressed he continues to not have any concerns re: completing baseline IADLs. He has been implementing trained tools/strategies as needed, including taking notes, weekly production planner scheduler, and use of voice recorder. He has also been able to implement executive functioning strategies as needed, including pacing, delegating tasks, breaking larger tasks into smaller ones, and taking ?brain breaks? to minimize cognitive fatigue as he participated in more IADLs and returns to work. He expressed that use of word-finding strategies has been very helpful and has been able to successfully retrieve words during occasional instances of anomia. Semantic Feature Analysis (SFA) implemented again to target anomia and use of circumlocution for improved word retrieval. The pt was provided with a visual graphic organizer with six categories (category/group, use, action, properties, location, and association) and was asked to generate words across the six categories for personally-relevant, functional words. He produced an average of 15+ words per target photo, increasing to 20+ words given minimal cueing. He was able to produce succinct and effective descriptions of each target word. In conversation, he did not demonstrate any word- finding difficulty. SQL SERVER CONSULTANT provided education re: holistic lifestyle factors that positively impact cognition. Pt expressed understanding and noted several areas that he will continue to target, such as diet and exercise. Pt has been seen for 6 speech therapy visits addressing cognitive-communication in the setting of CVA since the start of care 03/08/24. He has attended at a frequency of once a week and has been motivated and engaged throughout and implemented strategies recommended. Treatment has included education and implementation of external compensatory strategies for memory, word-finding strategies, and executive functioning strategies for return to work. Treatment also included education re: holistic lifestyle factors. During the session on this date, pt expressed he is able to now complete baseline tasks with use of compensatory strategies. He also has improved in self- perception of overall communication and is able to utilize strategies with increased ease during word- finding difficulty. He has no further concerns at this time cognitive-communication// speech therapy. Educated pt re: calling PCP for new referral if he notices new onset of difficulty related to cognitive-communication in the future. Pt discharged on this date. Reviewed with Progress Being Made,Home Exercise Program Patient Patient/Caregiver Excellent Understanding Plan Amount of Therapy No Further Therapy Recommended Frequency of No Further Therapy Treatment Therapeutic Contents Client Education,Cognitive-Linguistic Training,Home Exercise Program Provided Patient/ Plan of Care,Questions/Concerns Caregiver Instruction Therapy Discharge to Home Exercise Program,Discharge from Recommendations Speech Therapy
== END 2025-04-21 10:39 | disposition home or self-care (01) ==
LOC: SP 13:45
PROVIDERS: Family Provider Student in an Organized Health Care Education/Training Program; PCP Student in an Organized Health Care Education/Training Program; Referring Provider Nurse Practitioner; Visit Provider Nurse Practitioner
DX: I63.9 Cerebral infarction, unspecified (principal); I63.512 Cerebral infarction due to unspecified occlusion or stenosis of left middle cerebral artery
CPT/HCPCS: 92507; 96125

== ENCOUNTER 2025-04-21 09:45 | Outpatient (RCR) | payer OTHER, SELFPAY ==
[2021-01-02 23:55] VITALS: BMI 35.9
--- NOTE | 2025-03-27 15:01 | PT.OIE ---
Current Diagnoses Cerebral infarction due to unspecified occlusion or stenosis of left middle cerebral artery (03/27/25) Muscle weakness (generalized) (03/27/25) Unsteadiness on feet (03/27/25) Past Medical History (Last Reviewed 07/27/23 @ 10:45 by Hanh Youngblood PA-C) Abdominal pain Arthritis BPH (benign prostatic hyperplasia) Depression Hyperlipidemia Hypertension Influenza immunization not administered due to patient already having been immunized this season Past Surgical History (Last Reviewed 07/27/23 @ 10:45 by Hanh Youngblood PA-C) Hx of umbilical hernia repair Visit Care Team Role Provider Type Belgica Haddad MD Family Provider Non-Staff Primary Care Provider Specialty: Family Practice Address: [address] [place] [address], [id number] Email: MANUEL Ramirez Attending Provider Non-Staff Referring Provider Specialty: Nursing Address: [facility], [address] [place] [address], [phone] Email: Physical Therapy Initial Evaluation PT-OP-A Visit Information Start: 03/27/25 12:28 Freq: Status: Active Protocol: Document 03/27/25 09:45 DCW (Rec: 03/27/25 12:46 DCW [id number]) Out-Patient Physical Therapy Visit Information Visit Information Visit Type Initial Evaluation Visit Start Time 09:45 Visit Stop Time 10:30 Visit Number 1 Number of TRANSPORTATION SECURITY OFFICER Visits 0 Evaluation Information Evaluation Date 03/27/25 PT-OP-B Current Condition Start: 03/27/25 12:28 Freq: Status: Active Protocol: Document 03/27/25 09:45 DCW (Rec: 03/27/25 12:46 DCW [id number]) Current Condition History of Current Condition Onset Date 01/23/25 Current Complaints Weakness, difficulty sit-> stand, limited walking tolerance History of Current Condition Pt is a 65 year old male presenting two months s/p CVA. 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 Pt presented to the ED and was being prepped to transfer to a different hospital, he began showing signs of confusion, slurred speech, and loss of memory, was found to have left middle cerebral artery occlusion CVA. Pt was hospitalized from 01/23/25 through 01/28/25. Pt overall doing quite well post-CVA, limitations with ADLs are largely secondary to hand injury. Biggest lingering complaints secondary to CVA include difficulty getting into standing from a recliner, weakness in his legs, and pain from the hips down after walking more than ten minutes, all of which are new symptoms since the CVA. Notes his balance is not very good at the moment. Has undergone surgery on his left hand to repair damage from the initial crush injury, wearing protective bracing on his arm and hand, notes he is getting care for that elsewhere, it is not a concern of his for this PT evaluation. PT-OP-C Subjective Start: 03/27/25 12:28 Freq: Status: Active Protocol: Document 03/27/25 09:45 DCW (Rec: 03/27/25 15:01 DCW [id number]) OP-PT Subjective Patient Comments Patient Comments Pt reports he overall feels he is doing pretty well, admits it could have been a lot better. Trying to be healthier since his CVA, notes they took away my tobacco and after -work beers. PT-OP-D Balance Start: 03/27/25 12:28 Freq: Status: Active Protocol: Document 03/27/25 09:45 DCW (Rec: 03/27/25 12:46 DCW [id number]) Balance Tests Romberg Romberg EO/EC: both 30+ seconds Single Limb Standing Single Limb- Right 1 sec Single Limb- Left 1 sec Tandem Tandem Standing R tandem: 1 sec, L tandem: 2 sec PT-OP-E Functional Tests Start: 03/27/25 12:46 Freq: Status: Active Protocol: Document 03/27/25 09:45 DCW (Rec: 03/27/25 12:47 DCW [id number]) Functional Tests 30 Second Sit to Stand Test Score x12 repetitions, no UE use PT-OP-G Mobility & Gait Start: 03/27/25 12:28 Freq: Status: Active Protocol: Document 03/27/25 09:45 DCW (Rec: 03/27/25 12:50 DCW [id number]) OP Gait Assessment Comments Gait Comments Pt ambulates with mild right foot external rotation, occasional scuffing of left foot during swing phase. Pt displays a mild path deviation during gait. PT-OP-M Strength Start: 03/27/25 12:28 Freq: Status: Active Protocol: Document 03/27/25 09:45 DCW (Rec: 03/27/25 12:50 DCW [id number]) Hip Strength Hip Manual Muscle Testing Right Flexion (L2) 4 Good Extension (S1) 4 Good Abduction 4+ Good+ Adduction 4 Good External Rotation 4 Good Internal Rotation 4- Good- Left Flexion (L2) 5 Normal Extension (S1) 4+ Good+ Abduction 5 Normal Adduction 5 Normal External Rotation 5 Normal Internal Rotation 5 Normal Knee Strength Knee Manual Muscle Testing Right Flexion (S2) 4 Good Extension (L3) 5 Normal Left Flexion (S2) 5 Normal Extension (L3) 5 Normal Ankle/Foot Strength Ankle and Foot Manual Muscle Testing Right Dorsiflexion (L4) 5 Normal Left Dorsiflexion (L4) 5 Normal PT-OP-Q Treatments Start: 03/27/25 12:28 Freq: Status: Active Protocol: Document 03/27/25 09:45 DCW (Rec: 03/27/25 12:51 DCW [id number]) Therapeutic Exercises Sidelying Exercises Reverse Clamshell Sidelying Exercise Name Reverse Clamshell Side right Resistance Lv 3 Clamshell Sidelying Exercise Name Clamshell Side right Resistance Lv 3 Standing Exercises Hip Extension Standing Exercise Name Hip Extension Side bilateral Resistance Lv 3 PT-OP-T Assessment and Plan Start: 03/27/25 12:28 Freq: Status: Active Protocol: Document 03/27/25 09:45 DCW (Rec: 03/27/25 15:01 DCW [id number]) Physical Therapy Assessment Rehab Potential Rehabilitation Potential Good Evaluation Complexity Number of Personal Factors/Comorbidities 3 or More Number of Body Systems Impaired 4 or More Clinical Presentation at Evaluation Unstable Impairments Impairments Activity Tolerance,Balance, Functional Activities, Functional Mobility,Gait, Strength,Tone Goals Four Impairment Pt unable to perform single leg stance on either foot for >1 second Shelter Goal (LTG) Pt to display ability to perform SLS bilaterally >10 seconds in order to demonstrate improved functional balance and decreased falls risk. LTG Duration 05/27/25 Three Impairment Pt performs 12 repetitions during the 30 second Sit to Stand test Bow Maker Gift Wrapping Goal (LTG) Pt to improved 30sStS score by at least five repetitions to 17 in order to align with Criterion fitness standards to maintain physical independence for his age group of males 60-64. LTG Duration 05/27/25 Two Impairment Pt experiences increased pain in legs walking longer than 10 minutes Shelter Goal (LTG) Pt to report ability to ambulate 25 minutes or longer without increased leg pain in order to improved functional mobility. LTG Duration 05/27/25 One Impairment Pt does not have an appropriate home exercise program Short Term Goal (STG) Pt to be independent and compliant with an appropriate HEP STG Duration 04/26/25 Assessment Summary Assessment Pt presents with signs and symptoms consistent with referring diagnosis. Pt overall doing fairly well s/p CVA/left middle cerebral artery occlusion. Continuing post-CVA limitations include sit<->stand difficulty, LE weakness R>L, LE pain walking more than 10 minutes, and decreased balance. Pt also ambulates with path deviation, externally rotated right foot , and occasional left foot scuffing during swing phase. 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 Pt will likely benefit from skilled therapeutic intervention focusing on LE strengthening, increased activity tolerance, transfers/ functional mobility, balance, and gait training. Physical Therapy Plan Frequency and Duration Frequency of Treatment 2x/Week Plan of Care Start Date 03/27/25 Plan of Care End Date 05/27/25 Therapeutic Interventions Therapeutic Interventions Balance Training,Gait Training ,Home Exercise Program,Manual Therapy,Neuromuscular Re- education,Patient/Caregiver Education,Self-Care/Home Management,Soft Tissue Mobilization,Therapeutic Activities,Therapeutic Exercises Next Visit Focus/Plan Next Note Type Treatment Note Next Visit Plan LE strengthening, balance training
--- NOTE | 2025-03-27 15:01 | PT.OPPOC ---
Physical, Occupational & Speech Therapy At [facility] Current Diagnoses Cerebral infarction due to unspecified occlusion or stenosis of left middle cerebral artery (03/27/25) Muscle weakness (generalized) (03/27/25) Unsteadiness on feet (03/27/25) Visit Care Team Role Provider Type Belgica Haddad MD Family Provider Non-Staff Primary Care Provider Specialty: Family Practice Address: [address] [place] [address], [id number] Email: MANUEL Ramirez Attending Provider Non-Staff Referring Provider Specialty: Nursing Address: [facility], [address] [place] [address], [id number] Email: Plan Of Care PT-OP-B Current Condition Start: 03/27/25 12:28 Freq: Status: Active Protocol: Document 03/27/25 09:45 DCW (Rec: 03/27/25 12:46 DCW [id number]) Current Condition History of Current Condition Onset Date 01/23/25 Current Complaints Weakness, difficulty sit-> stand, limited walking tolerance History of Current Condition Pt is a 65 year old male presenting two months s/p CVA. 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 Pt presented to the ED and was being prepped to transfer to a different hospital, he began showing signs of confusion, slurred speech, and loss of memory, was found to have left middle cerebral artery occlusion CVA. Pt was hospitalized from 01/23/25 through 01/28/25. Pt overall doing quite well post-CVA, limitations with ADLs are largely secondary to hand injury. Biggest lingering complaints secondary to CVA include difficulty getting into standing from a recliner, weakness in his legs, and pain from the hips down after walking more than ten minutes, all of which are new symptoms since the CVA. Notes his balance is not very good at the moment. Has undergone surgery on his left hand to repair damage from the initial crush injury, wearing protective bracing on his arm and hand, notes he is getting care for that elsewhere, it is not a concern of his for this PT evaluation. PT-OP-T Assessment and Plan Start: 03/27/25 12:28 Freq: Status: Active Protocol: Document 03/27/25 09:45 DCW (Rec: 03/27/25 15:01 DCW [id number]) Physical Therapy Assessment Rehab Potential Rehabilitation Potential Good Evaluation Complexity Number of Personal Factors/Comorbidities 3 or More Number of Body Systems Impaired 4 or More Clinical Presentation at Evaluation Unstable Impairments Impairments Activity Tolerance,Balance, Functional Activities, Functional Mobility,Gait, Strength,Tone Goals Four Impairment Pt unable to perform single leg stance on either foot for >1 second Architectural Draftsperson Goal (LTG) Pt to display ability to perform SLS bilaterally >10 seconds in order to demonstrate improved functional balance and decreased falls risk. LTG Duration 05/27/25 Three Impairment Pt performs 12 repetitions during the 30 second Sit to Stand test Mcc Goal (LTG) Pt to improved 30sStS score by at least five repetitions to 17 in order to align with Criterion fitness standards to maintain physical independence for his age group of males 60-64. LTG Duration 05/27/25 Two Impairment Pt experiences increased pain in legs walking longer than 10 minutes Mcc Goal (LTG) Pt to report ability to ambulate 25 minutes or longer without increased leg pain in order to improved functional mobility. LTG Duration 05/27/25 One Impairment Pt does not have an appropriate home exercise program Short Term Goal (STG) Pt to be independent and compliant with an appropriate HEP STG Duration 04/26/25 Assessment Summary Assessment Pt presents with signs and symptoms consistent with referring diagnosis. Pt overall doing fairly well s/p CVA/left middle cerebral artery occlusion. Continuing post-CVA limitations include sit<->stand difficulty, LE weakness R>L, LE pain walking more than 10 minutes, and decreased balance. Pt also ambulates with path deviation, externally rotated right foot , and occasional left foot scuffing during swing phase. 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 Pt will likely benefit from skilled therapeutic intervention focusing on LE strengthening, increased activity tolerance, transfers/ functional mobility, balance, and gait training. Physical Therapy Plan Frequency and Duration Frequency of Treatment 2x/Week Plan of Care Start Date 03/27/25 Plan of Care End Date 05/27/25 Therapeutic Interventions Therapeutic Interventions Balance Training,Gait Training ,Home Exercise Program,Manual Therapy,Neuromuscular Re- education,Patient/Caregiver Education,Self-Care/Home Management,Soft Tissue Mobilization,Therapeutic Activities,Therapeutic Exercises Next Visit Focus/Plan Next Note Type Treatment Note Next Visit Plan LE strengthening, balance training Plan of Care Dates Plan of Care Start Date 03/27/25 Plan of Care End Date 05/27/25 Electronically Signed by: John Correa, PT 03/27/25 1414 If you are in agreement with this Plan of Care, please return a signed and dated copy. I have reviewed this Plan of Care and certify that the skilled therapy services above are required to meet the patient?s needs. Physician Signature Date Printed Name and Credentials Clinical Instructor Signature Printed Name and Credentials
--- NOTE | 2025-03-29 17:03 | PT.OTN ---
Addendum entered and electronically signed by John Correa, PT 03/29/25 17:37: PT direct supervision and direction to student PT Frank Nguyen throughout session Original Note: Current Diagnoses Cerebral infarction due to unspecified occlusion or stenosis of left middle cerebral artery (03/29/25) Muscle weakness (generalized) (03/29/25) Unsteadiness on feet (03/29/25) Physical Therapy Treatment Note PT-OP-A Visit Information Start: 03/27/25 12:28 Freq: Status: Active Protocol: Document 03/29/25 09:45 LFG (Rec: 03/29/25 11:00 LFG [id number]) Out-Patient Physical Therapy Visit Information Visit Information Visit Type Treatment Note Visit Start Time 09:45 Visit Stop Time 10:25 Visit Number 2 Evaluation Information Evaluation Date 03/27/25 PT-OP-B Current Condition Start: 03/27/25 12:28 Freq: Status: Active Protocol: Document 03/27/25 09:45 DCW (Rec: 03/27/25 12:46 DCW [id number]) Current Condition History of Current Condition Onset Date 01/23/25 Current Complaints Weakness, difficulty sit->stand, limited walking tolerance History of Current Pt is a 65 year old male presenting two months s/p CVA. 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 Pt presented to the ED and was being prepped to transfer to a different hospital, he began showing signs of confusion, slurred speech, and loss of memory, was found to have left middle cerebral artery occlusion CVA. Pt was hospitalized from 01/23/25 through 01/28/25. Pt overall doing quite well post-CVA, limitations with ADLs are largely secondary to hand injury. Biggest lingering complaints secondary to CVA include difficulty getting into standing from a recliner, weakness in his legs, and pain from the hips down after walking more than ten minutes, all of which are new symptoms since the CVA. Notes his balance is not very good at the moment. Has undergone surgery on his left hand to repair damage from the initial crush injury, wearing protective bracing on his arm and hand, notes he is getting care for that elsewhere, it is not a concern of his for this PT evaluation. PT-OP-C Subjective Start: 03/27/25 12:28 Freq: Status: Active Protocol: Document 03/29/25 09:45 LFG (Rec: 03/29/25 11:00 LFG [id number]) OP-PT Subjective Patient Comments Patient Comments Pt reports feeling good today. Slightly tired from driving to [email or web address] for his hand PT yesterday. Occasional complaints of R knee discomfort during the session but says its been a longstanding condition. PT-OP-D Balance Start: 03/27/25 12:28 Freq: Status: Active Protocol: Document 03/27/25 09:45 DCW (Rec: 03/27/25 12:46 DCW [id number]) Balance Tests Romberg Romberg EO/EC: both 30+ seconds Single Limb Standing Single Limb- Right 1 sec Single Limb- Left 1 sec Tandem Tandem Standing R tandem: 1 sec, L tandem: 2 sec PT-OP-E Functional Tests Start: 03/27/25 12:46 Freq: Status: Active Protocol: Document 03/27/25 09:45 DCW (Rec: 03/27/25 12:47 DCW [id number]) Functional Tests 30 Second Sit to Stand Test Score x12 repetitions, no UE use PT-OP-G Mobility & Gait Start: 03/27/25 12:28 Freq: Status: Active Protocol: Document 03/27/25 09:45 DCW (Rec: 03/27/25 12:50 DCW [id number]) OP Gait Assessment Comments Gait Comments Pt ambulates with mild right foot external rotation, occasional scuffing of left foot during swing phase. Pt displays a mild path deviation during gait. PT-OP-M Strength Start: 03/27/25 12:28 Freq: Status: Active Protocol: Document 03/27/25 09:45 DCW (Rec: 03/27/25 12:50 DCW [id number]) Hip Strength Hip Manual Muscle Testing Right Flexion (L2) 4 Good Extension (S1) 4 Good Abduction 4+ Good+ Adduction 4 Good External Rotation 4 Good Internal Rotation 4- Good- Left Flexion (L2) 5 Normal Extension (S1) 4+ Good+ Abduction 5 Normal Adduction 5 Normal External Rotation 5 Normal Internal Rotation 5 Normal Knee Strength Knee Manual Muscle Testing Right Flexion (S2) 4 Good Extension (L3) 5 Normal Left Flexion (S2) 5 Normal Extension (L3) 5 Normal Ankle/Foot Strength Ankle and Foot Manual Muscle Testing Right Dorsiflexion (L4) 5 Normal Left Dorsiflexion (L4) 5 Normal PT-OP-Q Treatments Start: 03/27/25 12:28 Freq: Status: Active Protocol: Document 03/29/25 09:45 LFG (Rec: 03/29/25 11:00 LFG [id number]) Cardio Equipment Recumbent Stepper (Sci-Fit) Duration (Minutes) 5 Resistance 5 Other (nustep) Gym Equipment Shuttle Rebound Leg press unilateral Exercise Details 50 Comments Minimal VC to slow down movement Leg press bilateral Exercise Details 50 Comments Minimal VC to slow down movement. Recommend increasing resistance Shuttle Balance Shuttle balance Details DF/PF, side/side Reps/Duration red Comments CGA, needs minimal assistance to get to starting positions. Needs occasional use of UE to balance Therapeutic Exercises Standing Exercises Cone taps Standing Exercise 3 cone taps Name Side bilateral Equipment Used Paralell bars Comments w/o UE help CGA/SBA. Pt lost balance once but caught himself Monster walks/side steps Standing Exercise Fwd/bwd and side step walking Name Resistance L2 tb Equipment Used Paralell bars Reps/Minutes 2x Comments Pt used frequent UE help, min VC to keep feet facing fwd PT-OP-T Assessment and Plan Start: 03/27/25 12:28 Freq: Status: Active Protocol: Document 03/29/25 09:45 LFG (Rec: 03/29/25 11:00 LFG [id number]) Physical Therapy Assessment Impairments Impairments Activity Tolerance,Balance,Functional Activities, Functional Mobility,Gait,Strength,Tone Goals Four Impairment Pt unable to perform single leg stance on either foot for >1 second [facility]ci Goal (LTG) Pt to display ability to perform SLS bilaterally >10 seconds in order to demonstrate improved functional balance and decreased falls risk. LTG Duration 05/27/25 Three Impairment Pt performs 12 repetitions during the 30 second Sit to Stand test Cath Lab Nurse Goal (LTG) Pt to improved 30sStS score by at least five repetitions to 17 in order to align with Criterion fitness standards to maintain physical independence for his age group of males 60-64. LTG Duration 05/27/25 Two Impairment Pt experiences increased pain in legs walking longer than 10 minutes Cath Lab Nurse Goal (LTG) Pt to report ability to ambulate 25 minutes or longer without increased leg pain in order to improved functional mobility. LTG Duration 05/27/25 One Impairment Pt does not have an appropriate home exercise program Short Term Goal (STG Pt to be independent and compliant with an appropriate ) HEP STG Duration 04/26/25 Assessment Summary Assessment Pt tolerated todays session well with good effort, minimal complaints of longstanding knee discomfort, and minimal VC and CGA during therapeutic exercise. Recommend gradually progressing his exercises/ resistance in future to increase his functional strength, activity tolerance, functional mobility, balance, and gait Physical Therapy Plan Frequency and Duration Frequency of 2x/Week Treatment Plan of Care Start 03/27/25 Date Plan of Care End 05/27/25 Date Therapeutic Interventions Therapeutic Balance Training,Gait Training,Home Exercise Program, Interventions Manual Therapy,Neuromuscular Re-education,Patient/ Caregiver Education,Self-Care/Home Management,Soft Tissue Mobilization,Therapeutic Activities,Therapeutic Exercises Next Visit Focus/Plan Next Note Type Treatment Note Next Visit Plan LE strengthening, balance training
--- NOTE | 2025-04-04 10:40 | PT.OTN ---
Current Diagnoses Cerebral infarction due to unspecified occlusion or stenosis of left middle cerebral artery (04/04/25) Muscle weakness (generalized) (04/04/25) Unsteadiness on feet (04/04/25) Physical Therapy Treatment Note PT-OP-A Visit Information Start: 03/27/25 12:28 Freq: Status: Active Protocol: Document 04/04/25 09:46 AB (Rec: 04/04/25 10:38 AB Laptop) Out-Patient Physical Therapy Visit Information Visit Information Visit Type Treatment Note Visit Start Time 09:50 Visit Stop Time 10:04 Visit Number 3 ( PN due by 04/26/2025) Number of TOUR SALES REPRESENTATIVE Visits 1 Evaluation Information Evaluation Date 03/27/25 PT-OP-B Current Condition Start: 03/27/25 12:28 Freq: Status: Active Protocol: Document 03/27/25 09:45 DCW (Rec: 03/27/25 12:46 DCW [id number]) Current Condition History of Current Condition Onset Date 01/23/25 Current Complaints Weakness, difficulty sit->stand, limited walking tolerance History of Current Pt is a 65 year old male presenting two months s/p CVA. 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 Pt presented to the ED and was being prepped to transfer to a different hospital, he began showing signs of confusion, slurred speech, and loss of memory, was found to have left middle cerebral artery occlusion CVA. Pt was hospitalized from 01/23/25 through 01/28/25. Pt overall doing quite well post-CVA, limitations with ADLs are largely secondary to hand injury. Biggest lingering complaints secondary to CVA include difficulty getting into standing from a recliner, weakness in his legs, and pain from the hips down after walking more than ten minutes, all of which are new symptoms since the CVA. Notes his balance is not very good at the moment. Has undergone surgery on his left hand to repair damage from the initial crush injury, wearing protective bracing on his arm and hand, notes he is getting care for that elsewhere, it is not a concern of his for this PT evaluation. PT-OP-C Subjective Start: 03/27/25 12:28 Freq: Status: Active Protocol: Document 04/04/25 09:46 AB (Rec: 04/04/25 10:38 AB Laptop) OP-PT Subjective Patient Comments Patient Comments Patient reports he is a little better, comments he was a little sore after last session, R knee. Patient rates R knee pain / start of session. PT-OP-D Balance Start: 03/27/25 12:28 Freq: Status: Active Protocol: Document 03/27/25 09:45 DCW (Rec: 03/27/25 12:46 DCW [id number]) Balance Tests Romberg Romberg EO/EC: both 30+ seconds Single Limb Standing Single Limb- Right 1 sec Single Limb- Left 1 sec Tandem Tandem Standing R tandem: 1 sec, L tandem: 2 sec PT-OP-E Functional Tests Start: 03/27/25 12:46 Freq: Status: Active Protocol: Document 03/27/25 09:45 DCW (Rec: 03/27/25 12:47 DCW [id number]) Functional Tests 30 Second Sit to Stand Test Score x12 repetitions, no UE use PT-OP-G Mobility & Gait Start: 03/27/25 12:28 Freq: Status: Active Protocol: Document 03/27/25 09:45 DCW (Rec: 03/27/25 12:50 DCW [id number]) OP Gait Assessment Comments Gait Comments Pt ambulates with mild right foot external rotation, occasional scuffing of left foot during swing phase. Pt displays a mild path deviation during gait. PT-OP-M Strength Start: 03/27/25 12:28 Freq: Status: Active Protocol: Document 03/27/25 09:45 DCW (Rec: 03/27/25 12:50 DCW [id number]) Hip Strength Hip Manual Muscle Testing Right Flexion (L2) 4 Good Extension (S1) 4 Good Abduction 4+ Good+ Adduction 4 Good External Rotation 4 Good Internal Rotation 4- Good- Left Flexion (L2) 5 Normal Extension (S1) 4+ Good+ Abduction 5 Normal Adduction 5 Normal External Rotation 5 Normal Internal Rotation 5 Normal Knee Strength Knee Manual Muscle Testing Right Flexion (S2) 4 Good Extension (L3) 5 Normal Left Flexion (S2) 5 Normal Extension (L3) 5 Normal Ankle/Foot Strength Ankle and Foot Manual Muscle Testing Right Dorsiflexion (L4) 5 Normal Left Dorsiflexion (L4) 5 Normal PT-OP-Q Treatments Start: 03/27/25 12:28 Freq: Status: Active Protocol: Document 04/04/25 09:46 AB (Rec: 04/04/25 10:38 AB Laptop) Gym Equipment Shuttle Rebound Leg press unilateral Exercise Details 50 Reps/Duration X15 each Le Comments Monitored for pain Leg press bilateral Exercise Details 75 Comments monitored for pain Therapeutic Exercises Sidelying Exercises Reverse Clamshell Sidelying Exercise Reverse Clamshell Name Side bilateral Resistance Lv 3 Reps/Minutes 15 Clamshell Sidelying Exercise Clamshell Name Side bilateral Resistance Lv 3 Reps/Minutes X 15 Comments VC to avoid rolling back Sitting Exercises seated hip abd with band Sitting Exercise HEP Name Side bilateral Resistance level 3 and level 4 band Reps/Minutes one min X 1 each band Comments Verbal cues SLS R LE 5 sec post level 4 band Standing Exercises Cone taps Standing Exercise 3 cone taps Name Side bilateral Equipment Used Paralell bars Comments CGA Monster walks/side steps Standing Exercise Fwd/bwd and side step walking Name Resistance L2 tb Equipment Used Paralell bars Reps/Minutes 2x each Comments verbal and visual cues Neuro Re-Education Treatment Balance Activities SLS Details without UE use CGA tandem stepping Details Tandem then mod tandem Reps/Duration fwd and retro Comments CGA with UE above bar using bar as needed R UE PT-OP-T Assessment and Plan Start: 03/27/25 12:28 Freq: Status: Active Protocol: Document 04/04/25 09:46 AB (Rec: 04/04/25 10:38 AB Laptop) Physical Therapy Assessment Goals Four Impairment Pt unable to perform single leg stance on either foot for >1 second Business [employer] Dean Goal (LTG) Pt to display ability to perform SLS bilaterally >10 seconds in order to demonstrate improved functional balance and decreased falls risk. LTG Duration 05/27/25 Three Impairment Pt performs 12 repetitions during the 30 second Sit to Stand test Business [employer] Dean Goal (LTG) Pt to improved 30sStS score by at least five repetitions to 17 in order to align with Criterion fitness standards to maintain physical independence for his age group of males 60-64. LTG Duration 05/27/25 Two Impairment Pt experiences increased pain in legs walking longer than 10 minutes Business [employer] Dean Goal (LTG) Pt to report ability to ambulate 25 minutes or longer without increased leg pain in order to improved functional mobility. LTG Duration 05/27/25 One Impairment Pt does not have an appropriate home exercise program Short Term Goal (STG Pt to be independent and compliant with an appropriate ) HEP STG Duration 04/26/25 Assessment Summary Assessment Bernabe reports the knee is good end of session SLS R LE increased post glute med activation. Physical Therapy Plan Frequency and Duration Frequency of 2x/Week Treatment Plan of Care Start 03/27/25 Date Plan of Care End 05/27/25 Date Therapeutic Interventions Therapeutic Balance Training,Gait Training,Home Exercise Program, Interventions Manual Therapy,Neuromuscular Re-education,Patient/ Caregiver Education,Self-Care/Home Management,Soft Tissue Mobilization,Therapeutic Activities,Therapeutic Exercises Next Visit Focus/Plan Next Note Type Treatment Note Next Visit Plan LE strengthening, balance training
--- NOTE | 2025-04-13 17:08 | PT.OTN ---
Current Diagnoses Cerebral infarction due to unspecified occlusion or stenosis of left middle cerebral artery (04/13/25) Muscle weakness (generalized) (04/13/25) Unsteadiness on feet (04/13/25) Physical Therapy Treatment Note PT-OP-A Visit Information Start: 03/27/25 12:28 Freq: Status: Active Protocol: Document 04/13/25 16:15 DCW (Rec: 04/13/25 17:07 DCW [id number]) Out-Patient Physical Therapy Visit Information Visit Information Visit Type Treatment Note Visit Start Time 16:15 Visit Stop Time 17:00 Visit Number 5 Number of PETROLEUM ENGINEER Visits 0 Evaluation Information Evaluation Date 03/27/25 PT-OP-B Current Condition Start: 03/27/25 12:28 Freq: Status: Active Protocol: Document 03/27/25 09:45 DCW (Rec: 03/27/25 12:46 DCW [id number]) Current Condition History of Current Condition Onset Date 01/23/25 Current Complaints Weakness, difficulty sit->stand, limited walking tolerance History of Current Pt is a 65 year old male presenting two months s/p CVA. 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 Pt presented to the ED and was being prepped to transfer to a different hospital, he began showing signs of confusion, slurred speech, and loss of memory, was found to have left middle cerebral artery occlusion CVA. Pt was hospitalized from 01/23/25 through 01/28/25. Pt overall doing quite well post-CVA, limitations with ADLs are largely secondary to hand injury. Biggest lingering complaints secondary to CVA include difficulty getting into standing from a recliner, weakness in his legs, and pain from the hips down after walking more than ten minutes, all of which are new symptoms since the CVA. Notes his balance is not very good at the moment. Has undergone surgery on his left hand to repair damage from the initial crush injury, wearing protective bracing on his arm and hand, notes he is getting care for that elsewhere, it is not a concern of his for this PT evaluation. PT-OP-C Subjective Start: 03/27/25 12:28 Freq: Status: Active Protocol: Document 04/13/25 16:15 DCW (Rec: 04/13/25 17:07 DCW [id number]) OP-PT Subjective Patient Comments Patient Comments Pt reports he has been doing pretty well, progressing with his hand therapy PT-OP-D Balance Start: 03/27/25 12:28 Freq: Status: Active Protocol: Document 03/27/25 09:45 DCW (Rec: 03/27/25 12:46 DCW [id number]) Balance Tests Romberg Romberg EO/EC: both 30+ seconds Single Limb Standing Single Limb- Right 1 sec Single Limb- Left 1 sec Tandem Tandem Standing R tandem: 1 sec, L tandem: 2 sec PT-OP-E Functional Tests Start: 03/27/25 12:46 Freq: Status: Active Protocol: Document 03/27/25 09:45 DCW (Rec: 03/27/25 12:47 DCW [place] [id number]) Functional Tests 30 Second Sit to Stand Test Score x12 repetitions, no UE use PT-OP-G Mobility & Gait Start: 03/27/25 12:28 Freq: Status: Active Protocol: Document 03/27/25 09:45 DCW (Rec: 03/27/25 12:50 DCW [place] [id number]) OP Gait Assessment Comments Gait Comments Pt ambulates with mild right foot external rotation, occasional scuffing of left foot during swing phase. Pt displays a mild path deviation during gait. PT-OP-M Strength Start: 03/27/25 12:28 Freq: Status: Active Protocol: Document 03/27/25 09:45 DCW (Rec: 03/27/25 12:50 DCW [id number]) Hip Strength Hip Manual Muscle Testing Right Flexion (L2) 4 Good Extension (S1) 4 Good Abduction 4+ Good+ Adduction 4 Good External Rotation 4 Good Internal Rotation 4- Good- Left Flexion (L2) 5 Normal Extension (S1) 4+ Good+ Abduction 5 Normal Adduction 5 Normal External Rotation 5 Normal Internal Rotation 5 Normal Knee Strength Knee Manual Muscle Testing Right Flexion (S2) 4 Good Extension (L3) 5 Normal Left Flexion (S2) 5 Normal Extension (L3) 5 Normal Ankle/Foot Strength Ankle and Foot Manual Muscle Testing Right Dorsiflexion (L4) 5 Normal Left Dorsiflexion (L4) 5 Normal PT-OP-Q Treatments Start: 03/27/25 12:28 Freq: Status: Active Protocol: Document 04/13/25 16:15 DCW (Rec: 04/13/25 17:07 DCW [id number]) Gym Equipment Shuttle Recovery Unilateral Squats Resistance 50# Shuttle Recovery Stable Platform Reps/Time x15 each Bilateral Squats Resistance 100# Shuttle Recovery Stable Platform Reps/Time x15 Shuttle Balance Shuttle balance Details Red Comments DF/PF, Staggered Stance Therapeutic Exercises Standing Exercises Monster walks/side steps Standing Exercise Fwd/bwd and side step walking Name Resistance Green loop Equipment Used Paralell bars Reps/Minutes 2x each Comments verbal and visual cues Neuro Re-Education Treatment Balance Activities step up taps Details Cone taps Surface AirEx Equipment 4 cones Hurdles Details Hurdles/Foam Comments Fwd, tandem, and lateral tandem stepping Details Tandem Stance Equipment // bars PT-OP-T Assessment and Plan Start: 03/27/25 12:28 Freq: Status: Active Protocol: Document 04/13/25 16:15 DCW (Rec: 04/13/25 17:07 DCW [id number]) Physical Therapy Assessment Impairments Impairments Activity Tolerance,Balance,Functional Activities, Functional Mobility,Gait,Strength,Tone Goals Four Impairment Pt unable to perform single leg stance on either foot for >1 second Senior Living Goal (LTG) Pt to display ability to perform SLS bilaterally >10 seconds in order to demonstrate improved functional balance and decreased falls risk. LTG Duration 05/27/25 Three Impairment Pt performs 12 repetitions during the 30 second Sit to Stand test Senior Living Goal (LTG) Pt to improved 30sStS score by at least five repetitions to 17 in order to align with Criterion fitness standards to maintain physical independence for his age group of males 60-64. LTG Duration 05/27/25 Two Impairment Pt experiences increased pain in legs walking longer than 10 minutes Senior Living Goal (LTG) Pt to report ability to ambulate 25 minutes or longer without increased leg pain in order to improved functional mobility. LTG Duration 05/27/25 One Impairment Pt does not have an appropriate home exercise program Short Term Goal (STG Pt to be independent and compliant with an appropriate ) HEP STG Duration 04/26/25 Assessment Summary Assessment Pt doing very well with tolerating activity, does continue to fatigue with increased effort, but demonstrating improvement in balance and strength. Continue to focus on strengthening and balance. Physical Therapy Plan Frequency and Duration Frequency of 2x/Week Treatment Plan of Care Start 03/27/25 Date Plan of Care End 05/27/25 Date Therapeutic Interventions Therapeutic Balance Training,Gait Training,Home Exercise Program, Interventions Manual Therapy,Neuromuscular Re-education,Patient/ Caregiver Education,Self-Care/Home Management,Soft Tissue Mobilization,Therapeutic Activities,Therapeutic Exercises Next Visit Focus/Plan Next Note Type Treatment Note Next Visit Plan LE strengthening, balance training
--- NOTE | 2025-04-19 12:37 | PT.OTN ---
Current Diagnoses Cerebral infarction due to unspecified occlusion or stenosis of left middle cerebral artery (04/19/25) Muscle weakness (generalized) (04/19/25) Unsteadiness on feet (04/19/25) Physical Therapy Treatment Note PT-OP-A Visit Information Start: 03/27/25 12:28 Freq: Status: Active Protocol: Document 04/19/25 09:04 AB (Rec: 04/19/25 10:04 AB Laptop) Out-Patient Physical Therapy Visit Information Visit Information Visit Type Treatment Note Visit Start Time 09:04 Visit Stop Time 09:48 Visit Number 6 (PN due 04/25/2025) Number of FACULT[employer] Visits 1 Evaluation Information Evaluation Date 03/27/25 PT-OP-B Current Condition Start: 03/27/25 12:28 Freq: Status: Active Protocol: Document 03/27/25 09:45 DCW (Rec: 03/27/25 12:46 DCW [id number]) Current Condition History of Current Condition Onset Date 01/23/25 Current Complaints Weakness, difficulty sit->stand, limited walking tolerance History of Current Pt is a 65 year old male presenting two months s/p CVA. 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 Pt presented to the ED and was being prepped to transfer to a different hospital, he began showing signs of confusion, slurred speech, and loss of memory, was found to have left middle cerebral artery occlusion CVA. Pt was hospitalized from 01/23/25 through 01/28/25. Pt overall doing quite well post-CVA, limitations with ADLs are largely secondary to hand injury. Biggest lingering complaints secondary to CVA include difficulty getting into standing from a recliner, weakness in his legs, and pain from the hips down after walking more than ten minutes, all of which are new symptoms since the CVA. Notes his balance is not very good at the moment. Has undergone surgery on his left hand to repair damage from the initial crush injury, wearing protective bracing on his arm and hand, notes he is getting care for that elsewhere, it is not a concern of his for this PT evaluation. PT-OP-C Subjective Start: 03/27/25 12:28 Freq: Status: Active Protocol: Document 04/19/25 09:04 AB (Rec: 04/19/25 10:04 AB Laptop) OP-PT Subjective Patient Comments Patient Comments Patient reports hips, shoulders, arms and legs are sore . Patient rates hip pain 2-3/10 ambulating into session without device. Patient reports feeling sore post sitting, also reports he has been walking more. Patient reports he is not sore during ex, but is sore post exercises. Patient reports descending stairs continues to be difficult, was difficult prior to the accident. PT-OP-D Balance Start: 03/27/25 12:28 Freq: Status: Active Protocol: Document 03/27/25 09:45 DCW (Rec: 03/27/25 12:46 DCW [id number]) Balance Tests Romberg Romberg EO/EC: both 30+ seconds Single Limb Standing Single Limb- Right 1 sec Single Limb- Left 1 sec Tandem Tandem Standing R tandem: 1 sec, L tandem: 2 sec PT-OP-E Functional Tests Start: 03/27/25 12:46 Freq: Status: Active Protocol: Document 03/27/25 09:45 DCW (Rec: 03/27/25 12:47 DCW [id number]) Functional Tests 30 Second Sit to Stand Test Score x12 repetitions, no UE use PT-OP-G Mobility & Gait Start: 03/27/25 12:28 Freq: Status: Active Protocol: Document 03/27/25 09:45 DCW (Rec: 03/27/25 12:50 DCW [id number]) OP Gait Assessment Comments Gait Comments Pt ambulates with mild right foot external rotation, occasional scuffing of left foot during swing phase. Pt displays a mild path deviation during gait. PT-OP-M Strength Start: 03/27/25 12:28 Freq: Status: Active Protocol: Document 03/27/25 09:45 DCW (Rec: 03/27/25 12:50 DCW [id number]) Hip Strength Hip Manual Muscle Testing Right Flexion (L2) 4 Good Extension (S1) 4 Good Abduction 4+ Good+ Adduction 4 Good External Rotation 4 Good Internal Rotation 4- Good- Left Flexion (L2) 5 Normal Extension (S1) 4+ Good+ Abduction 5 Normal Adduction 5 Normal External Rotation 5 Normal Internal Rotation 5 Normal Knee Strength Knee Manual Muscle Testing Right Flexion (S2) 4 Good Extension (L3) 5 Normal Left Flexion (S2) 5 Normal Extension (L3) 5 Normal Ankle/Foot Strength Ankle and Foot Manual Muscle Testing Right Dorsiflexion (L4) 5 Normal Left Dorsiflexion (L4) 5 Normal PT-OP-Q Treatments Start: 03/27/25 12:28 Freq: Status: Active Protocol: Document 04/19/25 09:04 AB (Rec: 04/19/25 10:04 AB Laptop) Therapeutic Exercises Sidelying Exercises Reverse Clamshell Sidelying Exercise Reverse Clamshell Name Side bilateral Resistance Lv 4 Reps/Minutes 15 Clamshell Sidelying Exercise Clamshell Name Side bilateral Resistance Lv 4 Reps/Minutes X 15 Comments VC to avoid rolling back Sitting Exercises seated piriformis stretch Side bilateral Reps/Minutes 30 sec post trial without towel roll then 60 from hooklying X 2 L X 1 R 8 Comments * R w/o towel roll, monitored for loc of sensation of stretch seated hip abd with band Sitting Exercise HEP Name Side bilateral Resistance level 5 band Reps/Minutes one min X 1 Standing Exercises Cone taps Standing Exercise 4 cone taps Name Side bilateral Equipment Used Paralell bars Comments CGA Neuro Re-Education Treatment Balance Activities step up taps Details Cone taps also 6 inch step taps from foam Surface AirEx Equipment 4 cones SLS Details without UE use CGA tandem stepping Details tandem stepping Equipment // 10 feet X 4 Comments CGA PT-OP-T Assessment and Plan Start: 03/27/25 12:28 Freq: Status: Active Protocol: Document 04/19/25 09:04 AB (Rec: 04/19/25 10:04 AB Laptop) Physical Therapy Assessment Goals Four Impairment Pt unable to perform single leg stance on either foot for >1 second [facility] Goal (LTG) Pt to display ability to perform SLS bilaterally >10 seconds in order to demonstrate improved functional balance and decreased falls risk. LTG Duration 05/27/25 Three Impairment Pt performs 12 repetitions during the 30 second Sit to Stand test Sediment Remediation Consultant Goal (LTG) Pt to improved 30sStS score by at least five repetitions to 17 in order to align with Criterion fitness standards to maintain physical independence for his age group of males 60-64. LTG Duration 05/27/25 Two Impairment Pt experiences increased pain in legs walking longer than 10 minutes [facility] Goal (LTG) Pt to report ability to ambulate 25 minutes or longer without increased leg pain in order to improved functional mobility. LTG Duration 05/27/25 One Impairment Pt does not have an appropriate home exercise program Short Term Goal (STG Pt to be independent and compliant with an appropriate ) HEP STG Duration 04/26/25 Assessment Summary Assessment Patient progressed to level 4 band for clamshell and reverse clamshell. Physical Therapy Plan Frequency and Duration Frequency of 2x/Week Treatment Plan of Care Start 03/27/25 Date Plan of Care End 05/27/25 Date Next Visit Focus/Plan Next Note Type Progress Note Next Visit Plan LE strengthening, balance training, possibly add piriformis stretch to HEP
--- NOTE | 2025-04-21 15:49 | PT.OTN ---
Addendum entered and electronically signed by John Correa, PT 04/21/25 16:05: PT direct supervision and direction to student PT Frank Nguyen throughout session Original Note: Current Diagnoses Cerebral infarction due to unspecified occlusion or stenosis of left middle cerebral artery (04/21/25) Muscle weakness (generalized) (04/21/25) Unsteadiness on feet (04/21/25) Physical Therapy Treatment Note PT-OP-A Visit Information Start: 03/27/25 12:28 Freq: Status: Active Protocol: Document 04/21/25 09:46 LFG (Rec: 04/21/25 10:29 LFG [id number]) Out-Patient Physical Therapy Visit Information Visit Information Visit Type Treatment Note Visit Start Time 09:46 Visit Stop Time 10:33 Visit Number 7 Number of PASTE MAKER Visits 0 Evaluation Information Evaluation Date 03/27/25 PT-OP-B Current Condition Start: 03/27/25 12:28 Freq: Status: Active Protocol: Document 03/27/25 09:45 DCW (Rec: 03/27/25 12:46 DCW [id number]) Current Condition History of Current Condition Onset Date 01/23/25 Current Complaints Weakness, difficulty sit->stand, limited walking tolerance History of Current Pt is a 65 year old male presenting two months s/p CVA. 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 Pt presented to the ED and was being prepped to transfer to a different hospital, he began showing signs of confusion, slurred speech, and loss of memory, was found to have left middle cerebral artery occlusion CVA. Pt was hospitalized from 01/23/25 through 01/28/25. Pt overall doing quite well post-CVA, limitations with ADLs are largely secondary to hand injury. Biggest lingering complaints secondary to CVA include difficulty getting into standing from a recliner, weakness in his legs, and pain from the hips down after walking more than ten minutes, all of which are new symptoms since the CVA. Notes his balance is not very good at the moment. Has undergone surgery on his left hand to repair damage from the initial crush injury, wearing protective bracing on his arm and hand, notes he is getting care for that elsewhere, it is not a concern of his for this PT evaluation. PT-OP-C Subjective Start: 03/27/25 12:28 Freq: Status: Active Protocol: Document 04/21/25 09:46 LFG (Rec: 04/21/25 10:29 LFG [id number]) OP-PT Subjective Patient Comments Patient Comments Pt reports Muscle soreness last session, feeling good today. Going back to work April 25. PT-OP-D Balance Start: 03/27/25 12:28 Freq: Status: Active Protocol: Document 03/27/25 09:45 DCW (Rec: 03/27/25 12:46 DCW [id number]) Balance Tests Romberg Romberg EO/EC: both 30+ seconds Single Limb Standing Single Limb- Right 1 sec Single Limb- Left 1 sec Tandem Tandem Standing R tandem: 1 sec, L tandem: 2 sec PT-OP-E Functional Tests Start: 03/27/25 12:46 Freq: Status: Active Protocol: Document 03/27/25 09:45 DCW (Rec: 03/27/25 12:47 DCW [id number]) Functional Tests 30 Second Sit to Stand Test Score x12 repetitions, no UE use PT-OP-G Mobility & Gait Start: 03/27/25 12:28 Freq: Status: Active Protocol: Document 03/27/25 09:45 DCW (Rec: 03/27/25 12:50 DCW [id number]) OP Gait Assessment Comments Gait Comments Pt ambulates with mild right foot external rotation, occasional scuffing of left foot during swing phase. Pt displays a mild path deviation during gait. PT-OP-M Strength Start: 03/27/25 12:28 Freq: Status: Active Protocol: Document 03/27/25 09:45 DCW (Rec: 03/27/25 12:50 DCW [id number]) Hip Strength Hip Manual Muscle Testing Right Flexion (L2) 4 Good Extension (S1) 4 Good Abduction 4+ Good+ Adduction 4 Good External Rotation 4 Good Internal Rotation 4- Good- Left Flexion (L2) 5 Normal Extension (S1) 4+ Good+ Abduction 5 Normal Adduction 5 Normal External Rotation 5 Normal Internal Rotation 5 Normal Knee Strength Knee Manual Muscle Testing Right Flexion (S2) 4 Good Extension (L3) 5 Normal Left Flexion (S2) 5 Normal Extension (L3) 5 Normal Ankle/Foot Strength Ankle and Foot Manual Muscle Testing Right Dorsiflexion (L4) 5 Normal Left Dorsiflexion (L4) 5 Normal PT-OP-Q Treatments Start: 03/27/25 12:28 Freq: Status: Active Protocol: Document 04/21/25 09:46 LFG (Rec: 04/21/25 10:29 LFG [id number]) Gym Equipment Shuttle Recovery Unilateral Squats Resistance 50# Shuttle Recovery Stable Platform Reps/Time x15 each Bilateral Squats Resistance 100# Shuttle Recovery Stable Platform Reps/Time x15 Therapeutic Exercises Sidelying Exercises hip abductions Sidelying Exercise hip abductions Name Side bilateral Reps/Minutes x15 Comments cues to avoid rolling back Reverse Clamshell Sidelying Exercise Reverse Clamshell Name Side bilateral Resistance Lv 4 Reps/Minutes x15 Comments cues to avoid rolling back Clamshell Sidelying Exercise Clamshell Name Side bilateral Resistance Lv 4 Reps/Minutes X 15 Comments cues to avoid rolling back Neuro Re-Education Treatment Balance Activities step up taps Details Cone taps Surface AirEx, #4 ankles weights Equipment 3 cones Comments CGA - min/mod assist Hurdles Details Hurdles fwd/side Reps/Duration #4 ankle weight PT-OP-T Assessment and Plan Start: 03/27/25 12:28 Freq: Status: Active Protocol: Document 04/21/25 09:46 LFG (Rec: 04/21/25 10:29 LFG [id number]) Physical Therapy Assessment Impairments Impairments Activity Tolerance,Balance,Functional Activities, Functional Mobility,Gait,Strength,Tone Goals Four Impairment Pt unable to perform single leg stance on either foot for >1 second Civil Clerk Goal (LTG) Pt to display ability to perform SLS bilaterally >10 seconds in order to demonstrate improved functional balance and decreased falls risk. LTG Duration 05/27/25 Three Impairment Pt performs 12 repetitions during the 30 second Sit to Stand test Skilled Nursing Goal (LTG) Pt to improved 30sStS score by at least five repetitions to 17 in order to align with Criterion fitness standards to maintain physical independence for his age group of males 60-64. LTG Duration 05/27/25 Two Impairment Pt experiences increased pain in legs walking longer than 10 minutes Skilled Nursing Goal (LTG) Pt to report ability to ambulate 25 minutes or longer without increased leg pain in order to improved functional mobility. LTG Duration 05/27/25 One Impairment Pt does not have an appropriate home exercise program Short Term Goal (STG Pt to be independent and compliant with an appropriate ) HEP STG Duration 04/26/25 Assessment Summary Assessment Patient tolerated therapeutic exercise well but was significantly challenged with balance training. Patient states he worked hard today and is sweaty. Recommend continuing to focus on functional strength but with more emphasis on static and dynamic balance training. Physical Therapy Plan Frequency and Duration Frequency of 2x/Week Treatment Plan of Care Start 03/27/25 Date Plan of Care End 05/27/25 Date Therapeutic Interventions Therapeutic Balance Training,Gait Training,Home Exercise Program, Interventions Manual Therapy,Neuromuscular Re-education,Patient/ Caregiver Education,Self-Care/Home Management,Soft Tissue Mobilization,Therapeutic Activities,Therapeutic Exercises Next Visit Focus/Plan Next Note Type Progress Note Next Visit Plan LE strengthening, balance training, possibly add piriformis stretch to HEP
--- NOTE | 2025-08-21 12:55 | PT.OPDS ---
Current Diagnoses Cerebral infarction due to unspecified occlusion or stenosis of left middle cerebral artery (04/21/25) Muscle weakness (generalized) (04/21/25) Unsteadiness on feet (04/21/25) Visit Care Team Role Provider Type Belgica Haddad MD Family Provider Non-Staff Primary Care Provider Specialty: Family Practice Address: [address] [place] [address], [id number] Email: MANUEL Ramirez Attending Provider Non-Staff Referring Provider Specialty: Nursing Address: [facility], [address] [place] [address], [id number] Email: Visit Number Visit Number 7 Discharge Summary PT-OP-T Assessment and Plan Start: 03/27/25 12:28 Freq: Status: Active Protocol: Document 08/21/25 12:55 DCW (Rec: 08/21/25 12:55 DCW [id number]) Physical Therapy Assessment Assessment Summary Assessment Pt canceled multiple visits, has not been seen in more than four months. POC has . Pt will require a new referral in order to return in the future. Pt will be discharged from skilled PT at this time. Physical Therapy Plan Discharge Physical Therapy Discharge Reasons No Longer Attending PT
== END 2025-08-22 09:58 | disposition home or self-care (01) ==
LOC: PHYS 09:45
PROVIDERS: Family Provider Student in an Organized Health Care Education/Training Program; PCP Student in an Organized Health Care Education/Training Program; Referring Provider Nurse Practitioner; Visit Provider Nurse Practitioner
DX: I63.512 Cerebral infarction due to unspecified occlusion or stenosis of left middle cerebral artery (principal); M62.81 Muscle weakness (generalized); R26.81 Unsteadiness on feet
CPT/HCPCS: 97110; 97112; 97163